=== PATIENT | male | born 1950 | race African-American/Black ===

== ENCOUNTER 2016-04-27 18:56 | Emergency (ER) | payer OTHER ==
[2016-04-27 19:03] VITALS: BP 157/111; PULSE 85; TEMP 98; BMI 26.4
--- NOTE | 2016-04-27 19:53 | PDOC ---
History of Present Illness - General History Source: Patient Exam Limitations: No Limitations - History of Present Illness Initial Comments: 04/27/16 20:12 The patient is a 65 year old male with significant past medical history of hypertension, diabetes, CHF, COPD, liver cirrhosis, and asthma who presents to the ED with few days of increasing left groin pain. Patient states he saw Dr. Cramer on Monday as a follow up from a ultrasound he took back in March. He states the pain is nonradiating. As per Dr. Cramer, the ultrasound revealed a 3cm dilation of artery on the left side and states it appears to be stable. During his follow-up visit with Dr. Cramer on Monday, patient complained of left groin pain, which worsened today and decided to come into the ER. Dr. Cramer suggested an abdomen/pelvis CT with contrast for further evaluation. Patient also has complaints of lower back pain, which he visited his lookback coordinator for and was told it was due to musculoskeletal. The patient denies fever, chills, cough, SOB, chest pain, and palpitations. The patient denies nausea, vomiting, and diarrhea. Allergies: [place]-3 acid Ethyl Esters Social History: No alcohol, tobacco, or drug use reported. Past Surgical History: inguinal hernia repair PCP: Dr. Jeff Herrera Vascular: Dr. Marco Cramer Nephrology: Dr. Rosa Lopez <Joanne Gautam - Last Filed: 04/28/16 01:11> - General History Source: Patient <Richard Nielson - Last Filed: 04/28/16 01:18> - General Chief Complaint: Pain Stated Complaint: PCP SENT Time Seen by Provider: 04/27/16 19:42 Past History <Joanne Gautam - Last Filed: 04/28/16 01:11> - Past Medical History Anemia: No Asthma: Yes Cancer: No Cardiac Disorders: Yes (ATHEROSCLEROSIS OF AORTA) CVA: Yes (NO RESIDUAL) COPD: Yes CHF: Yes Dementia: No Diabetes: Yes GI Disorders: Yes (ACID REFLUX) Disorders: Yes (BPH,ABNORMAL PROSTATIC SECRETION TEST) HTN: Yes Hypercholesterolemia: Yes (HYPERTRIGLYCEMIA) Liver Disease: Yes (CIRRHOSIS.FATTY LIVER) Seizures: No Thyroid Disease: No - Surgical History Abdominal Surgery: Yes (INGUINAL HERNIA) Appendectomy: No Cardiac Surgery: No Cholecystectomy: No Lung Surgery: No Neurologic Surgery: No Orthopedic Surgery: No - Psycho/Social/Smoking Cessation Hx Anxiety: No Suicidal Ideation: No Smoking History: Former smoker Have you smoked in the past 12 months: No If you are a former smoker, when did you quit?: 25 YRS AGO Information on smoking cessation initiated: No Hx Alcohol Use: No Drug/Substance Use Hx: Yes (COCAINE,HEROIN-LAST USE 1966) Substance Use Type: None <Richard Nielson - Last Filed: 04/28/16 01:18> - Past Medical History Allergies/Adverse Reactions: Allergies Allergy/AdvReac Type Severity Reaction Status Date / Time [place]-3 acid Ethyl Esters Allergy Intermediate Rash Verified 04/27/16 19:51 [From Lovaza] Home Medications: Ambulatory Orders Vit D3-Vit K/Berberine/Hops [Ostera Tablet] 1 each PO DAILY 10/02/12 Dapagliflozin Propanediol [Farxiga] 5 mg PO DAILY tablet 06/23/14 Zolpidem Tartrate [Ambien] 2.5 mg PO PRN PRN 01/08/15 Carvedilol Phosphate [Coreg Cr] 20 mg PO DAILY 04/24/15 Sildenafil Citrate [Viagra] 100 mg PO DAILY tablet 05/22/15 Insulin Aspart Prot/Insuln Asp [Novolog Mix 70-30 Flexpen Syrn] 30 unit SQ BID 08/14/15 Losartan/Hydrochlorothiazide [Losartan-Hctz 50-12.5 mg Tab] 1 each PO DAILY Tramadol HCl [Ultram -] 50 mg PO Q8H #30 tablet MDD 4 04/28/16 Review of Systems - Review of Systems Able to Perform ROS?: Yes Comments:: 04/27/16 20:12 CONSTITUTIONAL: Absent: fever, no chills, no fatigue EYES: Absent: visual changes ENT: Absent: ear pain, no sore throat CARDIOVASCULAR: Absent: chest pain, no palpitations RESPIRATORY: Absent: cough, no SOB GI: Absent: no nausea, no vomiting, no constipation, no diarrhea GENITOURINARY: +left groin pain Absent: dysuria, no frequency, no hematuria MUSKULOSKELETAL: +lower back pain Absent: no arthralgia, no myalgia SKIN: Absent: rash NEURO: Absent: headache <BharratJoanne - Last Filed: 04/28/16 01:11> *Physical Exam - Vital Signs Last Vital Signs Temp Pulse Resp BP Pulse Ox 98.0 F 85 20 157/111 98 04/27/16 18:59 04/27/16 18:59 04/27/16 18:59 04/27/16 18:59 04/27/16 18:59 - Physical Exam Comments: 04/27/16 20:12 GENERAL: Well-appearing, well-nourished. No apparent distress. HEENT: Normocephalic, atraumatic. PERRL, EOM intact. CARDIOVASCULAR: Normal S1, S2. Regular rate and rhythm. PULMONARY: Clear to auscultation bilaterally. ABDOMEN: Soft, non-distended. Moderated tenderness in left inguinal region, no defect. EXTREMITIES: Normal ROM in all four extremities. No gross deformities. SKIN: Warm, dry. No rash NEUROLOGICAL: No focal neurological deficits. <Joanne Gautam - Last Filed: 04/28/16 01:11> - Vital Signs Last Vital Signs Temp Pulse Resp BP Pulse Ox 98.0 F 85 20 157/111 98 04/27/16 18:59 04/27/16 18:59 04/27/16 18:59 04/27/16 18:59 04/27/16 18:59 <Richard Nielson - Last Filed: 04/28/16 01:18> ED Treatment Course - LABORATORY CBC & Chemistry Diagram: 04/27/16 20:30 04/27/16 20:30 - RADIOLOGY Radiograph Interpretation: 04/28/16 01:11 EXAM: CT abdomen and pelvis without contrast Reviewed by Imaging pickle solution maker: FINDINGS: Lung bases are clear other than minimal right basilar linear atelectasis. The visualized cardiac chambers are normal size and configuration. There are tiny gallstones without gallbladder inflammation or biliary duct dilation. Normal unenhanced liver, pancreas, spleen, adrenal glands and kidneys. Posterior gastric diverticulum is noted. The abdominal small and large bowel are normal. There is no aortic aneurysm. There is no significant retroperitoneal lymphadenopathy. Small fat containing umbilical hernia is noted. The pelvic small and large bowel are normal. The appendix is normal. The urinary bladder and prostate gland are normal. No pelvic free fluid is identified. There is no significant pelvic lymphadenopathy. IMPRESSION: No aortic aneurysm. Tiny gallstones. Gastric diverticulum. No evidence of acute pathology. <LotusJoanne - Last Filed: 04/28/16 01:11> - LABORATORY CBC & Chemistry Diagram: 04/27/16 20:30 04/27/16 20:30 <Richard Nielson - Last Filed: 04/28/16 01:18> Medical Decision Making - Medical Decision Making 04/27/16 19:[address] Marco Cramer (via answering service) at 19:57 Awaiting call back Patient's case discussed with Dr. Cramer at 20:04 <Joanne Gautam - Last Filed: 04/28/16 01:11> - Medical Decision Making 04/28/16 01:17 Dr. Nielson: The scribe's documentation has been prepared under my direction and personally reviewed by me in its entirery. I confirm that the note above accurately reflects all work, treatment, procedures, and medical decision making performed by me. All studies are negative at this time. Pt to follow up with Dr. Cramer and Dr. Wilman Herrera <Richard Nielson - Last Filed: 04/28/16 01:18> *DC/Admit/Observation/Transfer - Attestations Scribe Attestion: 04/27/16 20:12 Documentation prepared by Joanne Gautam, acting as medical education specialist for Richard Nielson MD <Joanne Gautam - Last Filed: 04/28/16 01:11> - Discharge Dispostion Admit: No <Richard Nielson - Last Filed: 04/28/16 01:18> Diagnosis at time of Disposition: Left groin pain - Discharge Dispostion Disposition: HOME Condition at time of disposition: Stable - Prescriptions Prescriptions: Tramadol HCl [Ultram -] 50 mg PO Q8H #30 tablet MDD 4 - Referrals Referrals: Jeff Herrera MD [Primary Care Provider] - Marco Cramer MD [Staff Physician] - - Patient Instructions Printed Discharge Instructions: DI for Groin Strain
[2016-04-27] MEDS ORDERED: morphine CARPU-JECT 2 MG/1 ML DISP.SYRIN IVPUSH ONE (20:11)
[2016-04-27] MEDS ORDERED: ONDANSETRON 4 MG/2 ML VIAL IVPUSH STA (20:11)
[2016-04-27] MEDS ORDERED: morphine CARPU-JECT 4 MG/1 ML DISP.SYRIN ONE (20:25)
[2016-04-27] MEDS ORDERED: ONDANSETRON 4 MG/2 ML VIAL ONE (20:25)
[2016-04-27 20:43] LABS: BASOPHIL 1.8 % (0-2.0); EOSINOPHIL 3.1 % (0-4.5); MCH 29.8 pg (25.7-33.7); MCHC 33.4 g/dl (32.0-35.9); MEAN CELL VOLUME 89.3 fl (80-96); MEAN PLT VOLUME 9.5 fl (7.5-11.1); NEUTROPHILS 43.2 % (42.8-82.8); PLATELET COUNT 146 K/MM3 (134-434); RDW 13.7 % (11.9-15.9); WHITE BLOOD COUNT 7.7 K/mm3 (4.0-10.0)
[2016-04-27 20:55] LABS: INR 0.99 (0.82-1.09); PROTHROMBIN TIME (PATIENT) 10.9 SEC (9.98-11.88)
[2016-04-27 22:20] LABS: URINE APPEARANCE CLEAR; URINE BILIRUBIN NEGATIVE (NEGATIVE); URINE COLOR STRAW; URINE GLUCOSE (UA) 3+ (NEGATIVE); URINE KETONE NEGATIVE (NEGATIVE); URINE LEUK ESTERASE NEGATIVE (NEGATIVE); URINE NITRITE NEGATIVE (NEGATIVE); URINE UROBILINOGEN NEGATIVE E.U./dl (0.2-1.0)
[2016-04-27 22:25] LABS: URINE BLOOD 1+ (NEGATIVE); URINE PROTEIN 1+ (NEGATIVE)
[2016-04-27 22:42] LABS: URINE RBC 2 /hpf (0-3); URINE WBC <1 /hpf (3-5)
[2016-04-27 23:13] LABS: ALBUMIN 4.1 g/dl (3.4-5.0); CALCIUM 8.9 mg/dL (8.5-10.1); MAGNESIUM 2.5 mg/dL (1.8-2.4)
[2016-04-27 23:20] LABS: BILIRUBIN,TOTAL 0.4 mg/dL (0.2-1.0); CREATININE 1.5 mg/dL (0.7-1.3); TOT PROT 8.3 g/dl (6.4-8.2)
[2016-04-28] MEDS ORDERED: traMADol HCL 50 MG TABLET PO ONE (01:14)
[2016-04-28] MEDS ORDERED: traMADol HCL 50 MG TABLET ONE (01:37)
== END 2016-04-28 01:42 | disposition home or self-care (01) ==
LOC: JER 18:56
PROC: 3E033NZ Introduction of Analgesics, Hypnotics, Sedatives into Peripheral Vein, Percutaneous Approach (ICD-10-PCS; principal; 2016-04-27)
PROC: 3E033GC Introduction of Other Therapeutic Substance into Peripheral Vein, Percutaneous Approach (ICD-10-PCS; 2016-04-27)
DX: R10.32 Left lower quadrant pain (principal); I10 Essential (primary) hypertension; E11.9 Type 2 diabetes mellitus without complications; I50.9 Heart failure, unspecified; J44.9 Chronic obstructive pulmonary disease, unspecified; K74.60 Unspecified cirrhosis of liver; J45.909 Unspecified asthma, uncomplicated; Z86.73 Personal history of transient ischemic attack (TIA), and cerebral infarction without residual deficits; K21.9 Gastro-esophageal reflux disease without esophagitis; K76.0 Fatty (change of) liver, not elsewhere classified; Z87.891 Personal history of nicotine dependence; I70.0 Atherosclerosis of aorta
CPT/HCPCS: 36415; 74176-TC; 80053; 81003; 81015; 83690; 83735; 83880; 85025; 85610; 86850; 86900; 86901; 99283-25

== ENCOUNTER 2016-11-08 15:27 | Emergency (ER) | payer OTHER ==
--- NOTE | 2016-11-08 16:30 | PDOC ---
History of Present Illness - General Stated Complaint: CHEST PAIN Time Seen by Provider: 11/08/16 16:27 Past History - Past Medical History Allergies/Adverse Reactions: Allergies Allergy/AdvReac Type Severity Reaction Status Date / Time [place]-3 acid Ethyl Esters Allergy Intermediate Rash Verified 04/27/16 19:51 [From Lovaza] Home Medications: Ambulatory Orders Vit D3-Vit K/Berberine/Hops [Ostera Tablet] 1 each PO DAILY 10/02/12 Dapagliflozin Propanediol [Farxiga] 5 mg PO DAILY tablet 06/23/14 Zolpidem Tartrate [Ambien] 2.5 mg PO PRN PRN 01/08/15 Carvedilol Phosphate [Coreg Cr] 20 mg PO DAILY 04/24/15 Sildenafil Citrate [Viagra] 100 mg PO DAILY tablet 05/22/15 Insulin Aspart Prot/Insuln Asp [Novolog Mix 70-30 Flexpen Syrn] 30 unit SQ BID 08/14/15 Losartan/Hydrochlorothiazide [Losartan-Hctz 50-12.5 mg Tab] 1 each PO DAILY Tramadol HCl [Ultram -] 50 mg PO Q8H #30 tablet MDD 4 04/28/16 Anemia: No Asthma: Yes Cancer: No Cardiac Disorders: Yes (ATHEROSCLEROSIS OF AORTA) CVA: Yes (NO RESIDUAL) COPD: Yes CHF: Yes Dementia: No Diabetes: Yes GI Disorders: Yes (ACID REFLUX, hep C) Disorders: Yes (BPH,ABNORMAL PROSTATIC SECRETION TEST) HTN: Yes Hypercholesterolemia: Yes Liver Disease: Yes (CIRRHOSIS.FATTY LIVER) Seizures: No Thyroid Disease: No - Surgical History Abdominal Surgery: Yes (INGUINAL HERNIA) Appendectomy: No Cardiac Surgery: No Cholecystectomy: No Lung Surgery: No Neurologic Surgery: No Orthopedic Surgery: No - Psycho/Social/Smoking Cessation Hx Anxiety: No Suicidal Ideation: No Smoking History: Former smoker Have you smoked in the past 12 months: No If you are a former smoker, when did you quit?: 25 YRS AGO Hx Alcohol Use: No Drug/Substance Use Hx: Yes (COCAINE,HEROIN-LAST USE 1966) Substance Use Type: None
[2016-11-08 16:42] VITALS: TEMP 98.7; BMI 26.2
[2016-11-08 18:11] LABS: URINE APPEARANCE CLEAR; URINE BILIRUBIN NEGATIVE (NEGATIVE); URINE BLOOD NEGATIVE (NEGATIVE); URINE COLOR STRAW; URINE GLUCOSE (UA) 3+ (NEGATIVE); URINE KETONE NEGATIVE (NEGATIVE); URINE LEUK ESTERASE NEGATIVE (NEGATIVE); URINE NITRITE NEGATIVE (NEGATIVE); URINE PROTEIN NEGATIVE (NEGATIVE); URINE UROBILINOGEN NEGATIVE mg/dL (0.2-1.0)
[2016-11-08 18:12] LABS: BASOPHIL 0.2 % (0-2.0); EOSINOPHIL 3.1 % (0-4.5); MCH 30.3 pg (25.7-33.7); MCHC 33.4 g/dl (32.0-35.9); MEAN CELL VOLUME 90.6 fl (80-96); MEAN PLT VOLUME 9.5 fl (7.5-11.1); NEUTROPHILS 49.5 % (42.8-82.8); PLATELET COUNT 154 K/MM3 (134-434); RDW 13.4 % (11.9-15.9); WHITE BLOOD COUNT 6.2 K/mm3 (4.0-10.0)
--- NOTE | 2016-11-08 18:22 | PDOC ---
Attending Attestation - Resident Resident Name: AntoniaJaden - ED Attending Attestation I have performed the following: I have examined & evaluated the patient, The case was reviewed & discussed with the resident, I agree w/resident's findings & plan, Exceptions are as noted - HPI HPI: 11/08/16 18:19 Agree with the resident's HPI as documented in the electronic medical record. - Physicial Exam PE: 11/08/16 18:20 Agree with the resident's physical examination as documented in the electronic medical record. - Medical Decision Making 11/08/16 18:20 66-year-old male with history of hypertension, AAA, diabetes who presents to the emergency department with complaints of five-day history of intermittent chest pain. Differential diagnosis includes but is not limited to: ACS, pneumothorax, pneumonia, GERD, electrolyte abnormality, toxic/metabolic derangement. Plan: 1. EKGshows ST segment elevations in V1 and V2 that are unchanged from prior EKG obtained from [facility] performed in October 2016 2. Chest x-ray 3. Labs 4. Collateral information from band tacker at [place] 5. Given his cardiac risk factors, EKG findings will likely admit to observation for serial cardiac markers and stress test 6. Observe and reevaluate
[2016-11-08 18:33] LABS: ALBUMIN 3.5 g/dl (3.4-5.0); ANION GAP 9 (8-16); BILIRUBIN,TOTAL 0.4 mg/dL (0.2-1.0); CALCIUM 9.2 mg/dL (8.5-10.1); CO2 31 mmol/L (21-32); CPK 261 IU/L (39-308); CREATININE 1.6 mg/dL (0.7-1.3); SGOT/AST 15 U/L (15-37); SGPT/ALT 27 U/L (12-78); TOT PROT 7.5 g/dl (6.4-8.2)
[2016-11-08 18:35] LABS: ALK PHOS 112 U/L (45-117); TROPONIN I < 0.02 ng/ml (0.00-0.05)
[2016-11-08 18:55] LABS: GLUCOSE,RANDOM 421 mg/dL (74-106)
[2016-11-08 19:31] VITALS: PULSE 62
[2016-11-08] MEDS ORDERED: INSULIN REGULAR HUMAN 100 UNITS/ML *VIAL SQ ONE (20:14)
[2016-11-08] MEDS ORDERED: INSULIN REGULAR HUMAN 100 UNITS/ML *VIAL ONE (20:27)
--- NOTE | 2016-11-08 21:03 | PDOC ---
*Physical Exam - Vital Signs Last Vital Signs Temp Pulse Resp BP Pulse Ox 98.7 F 62 19 131/92 100 11/08/16 15:30 11/08/16 19:30 11/08/16 19:30 11/08/16 19:30 11/08/16 19:30 - Physical Exam General Appearance: Yes: Nourished ED Treatment Course - LABORATORY CBC & Chemistry Diagram: 11/08/16 17:30 11/08/16 17:30 - ADDITIONAL ORDERS Additional order review: Laboratory Results 11/08/16 11/08/16 11/08/16 18:20 17:30 17:30 Sodium 134 L Potassium 4.4 Chloride 94 L Carbon Dioxide 31 Anion Gap 9 BUN 23 H D Creatinine 1.6 H Creat Clearance w eGFR 43.33 Random Glucose 421 H* D Calcium 9.2 Total Bilirubin 0.4 AST 15 D ALT 27 Alkaline Phosphatase 112 Creatine Kinase 261 Creatine Kinase Index 0.9 CK-MB (CK-2) 2.405 Troponin I < 0.02 B-Natriuretic Peptide 116.05 Total Protein 7.5 Albumin 3.5 Urine Color Straw Urine Appearance Clear Urine pH 6.0 Urine Protein Negative Urine Glucose (UA) 3+ H Urine Ketones Negative Urine Blood Negative Urine Nitrite Negative Urine Bilirubin Negative Urine Urobilinogen Negative Ur Leukocyte Esterase Negative 11/08/16 17:30 RBC 4.42 MCV 90.6 MCHC 33.4 RDW 13.4 MPV 9.5 Neutrophils % 49.5 Lymphocytes % 37.5 Monocytes % 9.7 Eosinophils % 3.1 Basophils % 0.2 - Medications Given in the ED: ED Medications Discontinued Medications Generic Name Dose Route Start Last Admin Trade Name Gila PRN Reason Stop Dose Admin Insulin Human Regular 10 units 11/08/16 20:14 11/08/16 20:31 Novolin R Vial *For Ivpush Or Iv Drip Only* SQ 11/08/16 20:15 10 units ONCE ONE Administration *DC/Admit/Observation/Transfer Diagnosis at time of Disposition: Chest pain Qualifiers: Chest pain type: unspecified Qualified Code(s): R07.9 - Chest pain, unspecified - Discharge Dispostion Disposition: HOME Condition at time of disposition: Stable Admit: No - Patient Instructions Printed Discharge Instructions: DI for Chest Pain
[2016-11-08 21:59] LABS: CPK 240 IU/L (39-308); TROPONIN I < 0.02 ng/ml (0.00-0.05)
[2016-11-08] MEDS ORDERED: SODIUM CHLORIDE 1,000 ML IV STA (22:18)
[2016-11-08 23:41] VITALS: BP 161/97
--- NOTE | 2016-11-09 14:42 | EKG ---
Test Reason : Blood Pressure : / mmHG Vent. 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
--- NOTE | 2016-11-09 14:45 | EKG ---
Test Reason : Blood Pressure : / mmHG Vent. 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
== END 2016-11-08 23:55 | disposition home or self-care (01) ==
LOC: JER 15:27
PROC: 3E013VG Introduction of Insulin into Subcutaneous Tissue, Percutaneous Approach (ICD-10-PCS; principal; 2016-11-08)
PROC: 3E0337Z Introduction of Electrolytic and Water Balance Substance into Peripheral Vein, Percutaneous Approach (ICD-10-PCS; 2016-11-08)
DX: R07.9 Chest pain, unspecified (principal); I10 Essential (primary) hypertension; I50.9 Heart failure, unspecified; I70.0 Atherosclerosis of aorta; E11.9 Type 2 diabetes mellitus without complications; E78.00 Pure hypercholesterolemia, unspecified; J45.909 Unspecified asthma, uncomplicated; K21.9 Gastro-esophageal reflux disease without esophagitis; B18.2 Chronic viral hepatitis C; N40.0 Benign prostatic hyperplasia without lower urinary tract symptoms; Z86.73 Personal history of transient ischemic attack (TIA), and cerebral infarction without residual deficits; Z91.013 Allergy to seafood; Z87.891 Personal history of nicotine dependence
CPT/HCPCS: 36415; 71020-TC; 80053; 81003; 82553; 83880; 84484; 85025; 93005; 93010; 96360; 96372; 99284-25

== ENCOUNTER 2020-07-12 15:25 | Inpatient (IN) | payer OTHER ==
[2020-07-12 17:51] LABS: BASO % 0.7 % (0-2.0); EOS % 4.6 % (0-4.5); LYMPH % 30.9 % (8-40); MCH 30.1 pg (25.7-33.7); MCHC 33.2 g/dl (32.0-35.9); MEAN CELL VOLUME 90.5 fl (80-96); MEAN PLT VOLUME 9.9 fl (7.5-11.1); MONO % 8.1 % (3.8-10.2); NEUT % 55.7 % (42.8-82.8); PLATELET COUNT 157 K/MM3 (134-434); RBC 3.65 M/mm3 (4.00-5.60); RDW 13.8 % (11.9-15.9); WHITE BLOOD COUNT 5.8 K/mm3 (4.0-10.0)
[2020-07-12 18:11] LABS: CALCIUM 8.6 mg/dL (8.5-10.1)
[2020-07-12 18:12] LABS: BLOOD UREA NITROGEN 20.4 mg/dL (7-18)
[2020-07-12 18:16] LABS: CREATININE 1.7 mg/dL (0.55-1.3)
[2020-07-12 18:17] LABS: BILIRUBIN,TOTAL 0.3 mg/dL (0.2-1); TOT PROT 6.8 g/dl (6.4-8.2)
[2020-07-12] MEDS ORDERED: FUROSEMIDE 40 MG/4 ML INJECTABLE VIAL IVPUSH ONE (19:23)
[2020-07-12] MEDS ORDERED: FUROSEMIDE 40 MG/4 ML INJECTABLE VIAL ONE (19:46)
[2020-07-13 08:17] LABS: BASO % 1.1 % (0-2.0); EOS % 3.5 % (0-4.5); HEMATOCRIT 33.5 % (35.4-49); HEMOGLOBIN 11.4 GM/dL (11.7-16.9); LYMPH % 34.7 % (8-40); MCH 30.5 pg (25.7-33.7); MEAN CELL VOLUME 89.5 fl (80-96); MONO % 9.1 % (3.8-10.2); NEUT % 51.6 % (42.8-82.8); PLATELET COUNT 160 K/MM3 (134-434); RBC 3.74 M/mm3 (4.00-5.60); RDW 13.8 % (11.9-15.9); WHITE BLOOD COUNT 6.2 K/mm3 (4.0-10.0)
[2020-07-13 08:47] LABS: CALCIUM 8.6 mg/dL (8.5-10.1)
[2020-07-13 08:48] LABS: CREATININE 1.7 mg/dL (0.55-1.3)
[2020-07-13 08:49] LABS: BILIRUBIN,TOTAL 0.4 mg/dL (0.2-1); TOT PROT 6.6 g/dl (6.4-8.2)
[2020-07-13 08:50] LABS: PHOSPHOROUS 3.2 mg/dL (2.5-4.9)
[2020-07-13] MEDS ORDERED: FUROSEMIDE 40 MG/4 ML INJECTABLE VIAL IVPUSH SCH (10:00)
[2020-07-13] MEDS ORDERED: HYDROCHLOROTHIAZIDE 25 MG TABLET (FP) ONE (11:05)
[2020-07-13] MEDS ORDERED: CARVEDILOL 12.5 MG TABLET (FP) ONE (11:05)
[2020-07-13] MEDS ORDERED: SPIRONOLACTONE 25 MG TABLET ONE (11:06)
[2020-07-13] MEDS ORDERED: buPROPion HCL 100 MG TABLET ONE (11:06)
[2020-07-13] MEDS ORDERED: LOSARTAN POTASSIUM 50 MG TABLET ONE (11:06)
[2020-07-13] MEDS: SPIRONOLACTONE 25 MG TABLET PO SCH (11:12)
[2020-07-13] MEDS: CARVEDILOL 25 MG TABLET (FP) PO SCH ×2 (11:12→22:11)
[2020-07-13] MEDS: FUROSEMIDE 40 MG/4 ML INJECTABLE VIAL IVPUSH SCH ×2 (11:12→18:42)
[2020-07-13] MEDS: HYDROCHLOROTHIAZIDE 25 MG TABLET (FP) PO SCH (11:48)
[2020-07-13] MEDS: LOSARTAN POTASSIUM 50 MG TABLET PO SCH (11:48)
[2020-07-13] MEDS: INSULIN SLIDING SCALE (NOVOLOG) 1 VIAL SQ SCH ×3 (11:48→22:06)
[2020-07-13 13:11] LABS: INR 1.07 (0.83-1.09); PROTHROMBIN TIME (PATIENT) 13.1 SEC (9.7-13.0)
[2020-07-13] MEDS ORDERED: FUROSEMIDE 40 MG/4 ML INJECTABLE VIAL ONE (18:43)
[2020-07-13] MEDS: INSULIN (LEVEMIR) 100 UNITS/ML UNITS SQ SCH (22:06)
[2020-07-13] MEDS: ZOLPIDEM TARTRATE 5 MG TABLET PO PRN (22:11)
[2020-07-13] MEDS: HEPARIN NA (PORCINE) 5,000 UNITS/ML 1ML VIAL SQ SCH (22:11)
[2020-07-14] MEDS: FUROSEMIDE 40 MG/4 ML INJECTABLE VIAL IVPUSH SCH ×2 (06:48→13:15)
[2020-07-14] MEDS: INSULIN SLIDING SCALE (NOVOLOG) 1 VIAL SQ SCH ×4 (06:49→21:09)
[2020-07-14] MEDS ORDERED: DEXTROAMPHETAMINE SULFATE 20 MG PO SCH (07:00)
[2020-07-14 09:15] LABS: BASO % 0.7 % (0-2.0); EOS % 3.9 % (0-4.5); HEMOGLOBIN 12.2 GM/dL (11.7-16.9); LYMPH % 41.6 % (8-40); MCH 30.5 pg (25.7-33.7); MCHC 33.8 g/dl (32.0-35.9); MEAN CELL VOLUME 90.2 fl (80-96); MEAN PLT VOLUME 9.9 fl (7.5-11.1); MONO % 8.5 % (3.8-10.2); NEUT % 45.3 % (42.8-82.8); PLATELET COUNT 171 K/MM3 (134-434); RBC 3.99 M/mm3 (4.00-5.60); RDW 13.9 % (11.9-15.9); WHITE BLOOD COUNT 6.4 K/mm3 (4.0-10.0)
[2020-07-14] MEDS: CARVEDILOL 25 MG TABLET (FP) PO SCH ×2 (09:25→21:10)
[2020-07-14] MEDS: HYDROCHLOROTHIAZIDE 25 MG TABLET (FP) PO SCH (09:26)
[2020-07-14] MEDS: LOSARTAN POTASSIUM 50 MG TABLET PO SCH (09:26)
[2020-07-14] MEDS: HEPARIN NA (PORCINE) 5,000 UNITS/ML 1ML VIAL SQ SCH ×2 (09:27→21:10)
[2020-07-14] MEDS ORDERED: SPIRONOLACTONE 25 MG TABLET PO SCH (10:00)
[2020-07-14 10:09] LABS: ALBUMIN 3.2 g/dl (3.4-5.0); BLOOD UREA NITROGEN 28.2 mg/dL (7-18); CALCIUM 9.3 mg/dL (8.5-10.1)
[2020-07-14 10:12] LABS: CREATININE 2.1 mg/dL (0.55-1.3)
[2020-07-14 10:13] LABS: BILIRUBIN,TOTAL 0.5 mg/dL (0.2-1)
[2020-07-14] MEDS: SPIRONOLACTONE 25 MG TABLET PO SCH (11:30)
[2020-07-14] MEDS: INSULIN (LEVEMIR) 100 UNITS/ML UNITS SQ SCH (21:43)
[2020-07-14] MEDS: ZOLPIDEM TARTRATE 5 MG TABLET PO PRN (23:47)
[2020-07-15] MEDS: FUROSEMIDE 40 MG/4 ML INJECTABLE VIAL IVPUSH SCH ×2 (06:15→13:47)
[2020-07-15] MEDS: INSULIN SLIDING SCALE (NOVOLOG) 1 VIAL SQ SCH ×4 (06:15→21:21)
[2020-07-15 08:53] LABS: MAGNESIUM 2.1 mg/dL (1.8-2.4)
[2020-07-15 08:56] LABS: PHOSPHOROUS 3.9 mg/dL (2.5-4.9)
[2020-07-15] MEDS: CARVEDILOL 25 MG TABLET (FP) PO SCH ×2 (09:15→21:22)
[2020-07-15] MEDS: LOSARTAN POTASSIUM 50 MG TABLET PO SCH (09:15)
[2020-07-15] MEDS: HEPARIN NA (PORCINE) 5,000 UNITS/ML 1ML VIAL SQ SCH ×2 (09:15→21:22)
[2020-07-15] MEDS: SPIRONOLACTONE 25 MG TABLET PO SCH (09:16)
[2020-07-15] MEDS: HYDROCHLOROTHIAZIDE 25 MG TABLET (FP) PO SCH (09:16)
[2020-07-15 10:39] VITALS: BMI 27.8
[2020-07-15] MEDS: amLODIPine BESYLATE 5 MG TABLET (FP) PO SCH (11:39)
[2020-07-15] MEDS: INSULIN (LEVEMIR) 100 UNITS/ML UNITS SQ SCH (21:22)
[2020-07-15] MEDS: ZOLPIDEM TARTRATE 5 MG TABLET PO PRN (23:34)
[2020-07-16] MEDS: INSULIN SLIDING SCALE (NOVOLOG) 1 VIAL SQ SCH ×4 (06:06→21:21)
[2020-07-16] MEDS: FUROSEMIDE 40 MG/4 ML INJECTABLE VIAL IVPUSH SCH ×2 (06:07→13:51)
[2020-07-16] MEDS: LOSARTAN POTASSIUM 50 MG TABLET PO SCH (09:02)
[2020-07-16] MEDS: amLODIPine BESYLATE 5 MG TABLET (FP) PO SCH (09:02)
[2020-07-16] MEDS: CARVEDILOL 25 MG TABLET (FP) PO SCH ×2 (09:02→21:16)
[2020-07-16] MEDS: HEPARIN NA (PORCINE) 5,000 UNITS/ML 1ML VIAL SQ SCH ×2 (09:02→21:16)
[2020-07-16] MEDS: SPIRONOLACTONE 25 MG TABLET PO SCH (09:03)
[2020-07-16] MEDS: HYDROCHLOROTHIAZIDE 25 MG TABLET (FP) PO SCH (09:03)
[2020-07-16 10:06] LABS: CALCIUM 8.9 mg/dL (8.5-10.1)
[2020-07-16 10:07] LABS: BLOOD UREA NITROGEN 41.9 mg/dL (7-18)
[2020-07-16 10:10] LABS: CREATININE 2.3 mg/dL (0.55-1.3)
[2020-07-16] MEDS ORDERED: hydrALAZINE HCL 25 MG TABLET (FP) PO SCH ×2 (12:30→22:00)
[2020-07-16] MEDS ORDERED: PT OWN MED DRAWER 7, Y5N ONE (15:52)
[2020-07-16] MEDS ORDERED: INSULIN (NOVOLOG) ASPART 100 UNITS/ML 10ML VIAL ONE (20:52)
[2020-07-16] MEDS: INSULIN (LEVEMIR) 100 UNITS/ML UNITS SQ SCH (21:22)
[2020-07-16] MEDS ORDERED: INSULIN (LEVEMIR) 100 UNITS/ML UNITS SQ SCH (22:00)
[2020-07-16] MEDS: ZOLPIDEM TARTRATE 5 MG TABLET PO PRN (23:15)
[2020-07-17] MEDS: INSULIN SLIDING SCALE (NOVOLOG) 1 VIAL SQ SCH ×4 (06:26→21:47)
[2020-07-17] MEDS: INSULIN (LEVEMIR) 100 UNITS/ML UNITS SQ SCH ×2 (06:29→21:46)
[2020-07-17] MEDS: FUROSEMIDE 40 MG/4 ML INJECTABLE VIAL IVPUSH SCH ×2 (06:30→13:56)
[2020-07-17] MEDS ORDERED: INSULIN (NOVOLOG) ASPART 100 UNITS/ML 10ML VIAL ONE ×2 (07:57→12:10)
[2020-07-17] MEDS: amLODIPine BESYLATE 5 MG TABLET (FP) PO SCH (09:49)
[2020-07-17] MEDS: SPIRONOLACTONE 25 MG TABLET PO SCH (09:49)
[2020-07-17] MEDS: LOSARTAN POTASSIUM 50 MG TABLET PO SCH (09:49)
[2020-07-17] MEDS: CARVEDILOL 25 MG TABLET (FP) PO SCH ×2 (09:49→21:45)
[2020-07-17] MEDS: HEPARIN NA (PORCINE) 5,000 UNITS/ML 1ML VIAL SQ SCH ×2 (09:49→21:45)
[2020-07-18] MEDS: ZOLPIDEM TARTRATE 5 MG TABLET PO PRN (00:22)
[2020-07-18] MEDS: FUROSEMIDE 40 MG/4 ML INJECTABLE VIAL IVPUSH SCH (06:23)
[2020-07-18] MEDS: INSULIN SLIDING SCALE (NOVOLOG) 1 VIAL SQ SCH ×2 (06:23→12:00)
[2020-07-18] MEDS: INSULIN (LEVEMIR) 100 UNITS/ML UNITS SQ SCH (06:23)
[2020-07-18 07:29] VITALS: TEMP 98.4
[2020-07-18 10:12] LABS: EOS % 4.2 % (0-4.5); HEMATOCRIT 36.9 % (35.4-49); HEMOGLOBIN 12.3 GM/dL (11.7-16.9); LYMPH % 40.6 % (8-40); MCH 30.4 pg (25.7-33.7); MCHC 33.3 g/dl (32.0-35.9); MEAN CELL VOLUME 91.3 fl (80-96); MEAN PLT VOLUME 10.7 fl (7.5-11.1); MONO % 10.6 % (3.8-10.2); NEUT % 43.6 % (42.8-82.8); PLATELET COUNT 186 K/MM3 (134-434); RBC 4.04 M/mm3 (4.00-5.60); RDW 14.1 % (11.9-15.9); WHITE BLOOD COUNT 6.6 K/mm3 (4.0-10.0)
[2020-07-18] MEDS: CARVEDILOL 25 MG TABLET (FP) PO SCH (10:23)
[2020-07-18] MEDS: amLODIPine BESYLATE 5 MG TABLET (FP) PO SCH (10:23)
[2020-07-18] MEDS: HEPARIN NA (PORCINE) 5,000 UNITS/ML 1ML VIAL SQ SCH (10:23)
[2020-07-18] MEDS: SPIRONOLACTONE 25 MG TABLET PO SCH (10:23)
[2020-07-18] MEDS: LOSARTAN POTASSIUM 50 MG TABLET PO SCH (10:23)
[2020-07-18 10:34] LABS: BLOOD UREA NITROGEN 51.4 mg/dL (7-18); CALCIUM 9.1 mg/dL (8.5-10.1)
[2020-07-18 10:38] LABS: CREATININE 2.5 mg/dL (0.55-1.3)
[2020-07-18 11:09] VITALS: BP 150/88; PULSE 74
[2020-07-18] MEDS ORDERED: INSULIN (NOVOLOG) ASPART 100 UNITS/ML 10ML VIAL ONE (12:06)
== END 2020-07-18 13:00 | disposition home or self-care (01) | DRG 291 ==
LOC: JER 15:25 → JERBED 20:47 → J6WEST-2 07-13 21:37 → J8W 07-16 14:46
PROVIDERS: ADMIT Hospitalist; ATTEND Internal Medicine
DX: I13.0 Hypertensive heart and chronic kidney disease with heart failure and stage 1 through stage 4 chronic kidney disease, or unspecified chronic kidney disease (principal); I50.33 Acute on chronic diastolic (congestive) heart failure; K74.60 Unspecified cirrhosis of liver; I71.4 Abdominal aortic aneurysm, without rupture; J44.9 Chronic obstructive pulmonary disease, unspecified; E11.22 Type 2 diabetes mellitus with diabetic chronic kidney disease; Z20.822 Contact with and (suspected) exposure to COVID-19; Z79.4 Long term (current) use of insulin; N18.30 Chronic kidney disease, stage 3 unspecified; I44.0 Atrioventricular block, first degree; K76.0 Fatty (change of) liver, not elsewhere classified
CPT/HCPCS: 36415; 71045-TC-FY; 76775-TC; 80048; 80053; 80061; 82550; 82553; 82962; 83036; 83721; 83735; 83880; 84100; 84443; 84484; 85025; 85610; 93005; 93010; 93306-TC; 99285-25; C9803; J1644; U0003; U0005

== ENCOUNTER 2020-10-03 18:06 | Emergency (ER) | payer OTHER ==
[2020-10-03 18:12] VITALS: BP 162/82; PULSE 100; TEMP 98.5; BMI 26.9
[2020-10-03 20:29] LABS: BASO % 0.6 % (0-2.0); EOS % 3.5 % (0-4.5); HEMATOCRIT 34.1 % (35.4-49); HEMOGLOBIN 11.8 GM/dL (11.7-16.9); LYMPH % 20.3 % (8-40); MCH 30.5 pg (25.7-33.7); MCHC 34.7 g/dl (32.0-35.9); MEAN PLT VOLUME 8.5 fl (7.5-11.1); MONO % 8.9 % (3.8-10.2); NEUT % 66.7 % (42.8-82.8); PLATELET COUNT 190 10^3/uL (134-434); RBC 3.87 M/mm3 (4.00-5.60); RDW 13.4 % (11.9-15.9); WHITE BLOOD COUNT 6.6 K/mm3 (4.0-10.0)
[2020-10-03] MEDS ORDERED: LIDOCAINE 5% TOPICAL PATCH TP ONE (20:31)
[2020-10-03 20:45] LABS: CHLORIDE 103 mmol/L (98-107); SODIUM 136 mmol/L (136-145)
[2020-10-03 20:47] LABS: CALCIUM 8.8 mg/dL (8.5-10.1)
[2020-10-03 20:48] LABS: ALBUMIN 3.4 g/dl (3.4-5.0); ANION GAP 7 MMOL/L (8-16); CO2 27 mmol/L (21-32); GLUCOSE,RANDOM 261 mg/dL (74-106)
[2020-10-03] MEDS ORDERED: LIDOCAINE 5% TOPICAL PATCH ONE (20:50)
[2020-10-03 20:51] LABS: CREATININE 2.2 mg/dL (0.55-1.3); SGOT/AST 33 U/L (15-37); SGPT/ALT 33 U/L (13-61)
[2020-10-03 20:52] LABS: BILIRUBIN,TOTAL 0.3 mg/dL (0.2-1)
[2020-10-03 20:53] LABS: TOT PROT 7.8 g/dl (6.4-8.2)
[2020-10-03 20:54] LABS: ALK PHOS 140 U/L (45-117)
[2020-10-03 20:56] LABS: N-TERMINAL BNP 309.3 pg/ml (5-125)
[2020-10-03 21:07] LABS: PH,URINE 6.5 (5.0-8.0); URINE APPEARANCE Clear; URINE BILIRUBIN Negative (NEGATIVE); URINE COLOR Yellow; URINE GLUCOSE (UA) 1+ (NEGATIVE); URINE KETONE Negative (NEGATIVE); URINE LEUK ESTERASE Negative (NEGATIVE); URINE NITRITE Negative (NEGATIVE); URINE PROTEIN Negative (NEGATIVE); URINE UROBILINOGEN 0.2 mg/dL (0.2-1.0)
[2020-10-03] MEDS ORDERED: FUROSEMIDE 40 MG/4 ML INJECTABLE VIAL IVPUSH ONE (21:23)
[2020-10-03 21:58] LABS: URINE RBC 3.4 /uL (0-23.9)
[2020-10-03 21:59] LABS: EPI CELLS 0.7 /uL (0-25.1); URINE WBC 0.2 /uL (0-25.8)
[2020-10-03] MEDS ORDERED: LIDOCAINE PATCH REMOVAL MC SCH (22:00)
== END 2020-10-03 22:53 | disposition home or self-care (01) ==
LOC: JER 18:06
PROC: 3E033GC Introduction of Other Therapeutic Substance into Peripheral Vein, Percutaneous Approach (ICD-10-PCS; principal; 2020-10-03)
DX: M54.41 Lumbago with sciatica, right side (principal); M79.604 Pain in right leg
CPT/HCPCS: 36415; 71045-TC-FY; 73610-TC-RT-FY; 80053; 81003; 82550; 82553; 83880; 84484; 85025; 93005; 93010; 99285-25

== ENCOUNTER 2022-02-04 19:37 | Inpatient (IN) | payer OTHER ==
[2022-02-04 20:02] VITALS: BMI 26.9
[2022-02-04] MEDS ORDERED: CARVEDILOL 25 MG TABLET (FP) PO ONE (20:42)
[2022-02-04] MEDS ORDERED: hydrALAZINE HCL 20 MG/ML VIAL IVPUSH ONE (20:43)
[2022-02-04] MEDS ORDERED: CARVEDILOL 25 MG TABLET (FP) ONE (20:51)
[2022-02-04] MEDS ORDERED: hydrALAZINE HCL 20 MG/ML VIAL ONE (20:51)
[2022-02-04 21:12] LABS: BASO % 0.5 % (0-2.0); EOS % 0.7 % (0-4.5); HEMATOCRIT 32.8 % (35.4-49); LYMPH % 7.8 % (8-40); MCH 29.5 pg (25.7-33.7); MCHC 33.5 g/dl (32.0-35.9); MEAN CELL VOLUME 87.9 fl (80-96); MEAN PLT VOLUME 9.3 fl (7.5-11.1); MONO % 5.6 % (3.8-10.2); NEUT % 85.4 % (42.8-82.8); PLATELET COUNT 151 10^3/uL (134-434); RBC 3.73 M/mm3 (4.00-5.60); RDW 13.6 % (11.9-15.9); WHITE BLOOD COUNT 10.9 K/mm3 (4.0-10.0)
[2022-02-04] MEDS ORDERED: FUROSEMIDE 40 MG/4 ML INJECTABLE VIAL IVPUSH ONE ×2 (21:24→22:27)
[2022-02-04 21:37] LABS: ALBUMIN 2.6 g/dl (3.4-5.0); CALCIUM 8.4 mg/dL (8.5-10.1); MAGNESIUM 1.7 mg/dL (1.8-2.4)
[2022-02-04 21:40] LABS: CREATININE 2.2 mg/dL (0.55-1.3)
[2022-02-04] MEDS ORDERED: FUROSEMIDE 40 MG/4 ML INJECTABLE VIAL ONE ×2 (21:40→22:35)
[2022-02-04 21:42] LABS: TOT PROT 6.4 g/dl (6.4-8.2)
[2022-02-04 21:43] LABS: BILIRUBIN,TOTAL 0.5 mg/dL (0.2-1)
[2022-02-04 21:45] LABS: N-TERMINAL BNP 3303.6 pg/ml (5-125)
[2022-02-05 07:25] LABS: BASO % 0.5 % (0-2.0); EOS % 1.9 % (0-4.5); HEMATOCRIT 32.4 % (35.4-49); HEMOGLOBIN 10.7 GM/dL (11.7-16.9); LYMPH % 16.8 % (8-40); MCH 28.8 pg (25.7-33.7); MCHC 33.1 g/dl (32.0-35.9); NEUT % 72.8 % (42.8-82.8); PLATELET COUNT 154 10^3/uL (134-434); RBC 3.72 M/mm3 (4.00-5.60); RDW 13.9 % (11.9-15.9); WHITE BLOOD COUNT 9.5 K/mm3 (4.0-10.0)
[2022-02-05 07:47] LABS: CALCIUM 7.9 mg/dL (8.5-10.1)
[2022-02-05 07:48] LABS: ALBUMIN 2.4 g/dl (3.4-5.0); BLOOD UREA NITROGEN 18.6 mg/dL (7-18)
[2022-02-05 07:52] LABS: CREATININE 2.1 mg/dL (0.55-1.3)
[2022-02-05 07:53] LABS: BILIRUBIN,TOTAL 0.6 mg/dL (0.2-1)
[2022-02-05] MEDS: INSULIN SLIDING SCALE (NOVOLOG) 1 VIAL SQ SCH ×3 (07:53→16:32)
[2022-02-05] MEDS ORDERED: CARVEDILOL 25 MG TABLET (FP) ONE ×2 (10:27→21:15)
[2022-02-05] MEDS ORDERED: SPIRONOLACTONE 25 MG TABLET ONE (10:27)
[2022-02-05] MEDS ORDERED: amLODIPine BESYLATE 10 MG TABLET (FP) ONE (10:27)
[2022-02-05] MEDS: INSULIN (LEVEMIR) 100 UNITS/ML UNITS SQ SCH ×2 (10:34→21:17)
[2022-02-05] MEDS: amLODIPine BESYLATE 10 MG TABLET (FP) PO SCH (10:34)
[2022-02-05] MEDS: CARVEDILOL 25 MG TABLET (FP) PO SCH ×2 (10:34→21:17)
[2022-02-05] MEDS: SPIRONOLACTONE 25 MG TABLET PO SCH (10:34)
[2022-02-05] MEDS: INSULIN (NOVOLOG) ASPART 100 UNITS/ML 10ML VIAL SQ SCH ×3 (11:47→21:17)
[2022-02-05] MEDS ORDERED: FUROSEMIDE 40 MG/4 ML INJECTABLE VIAL ONE (12:58)
[2022-02-05] MEDS: FUROSEMIDE 40 MG/4 ML INJECTABLE VIAL IVPUSH SCH (13:12)
[2022-02-05] MEDS ORDERED: guaiFENesin/D-M SUGAR-FREE/ACLHOL-FREE 118 ML BOTTLE PO PRN (20:51)
[2022-02-05] MEDS ORDERED: guaiFENesin/D-METHORPHAN HB 10 ML UNIT-DOSE CUPS ONE (21:14)
[2022-02-05] MEDS ORDERED: HEPARIN NA (PORCINE) 5,000 UNITS/ML 1ML VIAL ONE (21:15)
[2022-02-05] MEDS: HEPARIN NA (PORCINE) 5,000 UNITS/ML 1ML VIAL SQ SCH (21:17)
[2022-02-05] MEDS ORDERED: ZOLPIDEM TARTRATE 5 MG TABLET PO PRN (22:00)
[2022-02-06] MEDS ORDERED: guaiFENesin/D-METHORPHAN HB 10 ML UNIT-DOSE CUPS ONE (02:20)
[2022-02-06] MEDS: INSULIN (LEVEMIR) 100 UNITS/ML UNITS SQ SCH ×2 (06:02→22:06)
[2022-02-06] MEDS: INSULIN (NOVOLOG) ASPART 100 UNITS/ML 10ML VIAL SQ SCH ×4 (06:02→22:06)
[2022-02-06] MEDS ORDERED: DEXTROAMPHETAMINE SULFATE 20 MG PO SCH (07:00)
[2022-02-06 07:35] LABS: BASO % 0.6 % (0-2.0); EOS % 4.4 % (0-4.5); HEMATOCRIT 35.5 % (35.4-49); HEMOGLOBIN 11.6 GM/dL (11.7-16.9); LYMPH % 29.1 % (8-40); MCH 28.7 pg (25.7-33.7); MCHC 32.7 g/dl (32.0-35.9); MEAN CELL VOLUME 87.7 fl (80-96); MEAN PLT VOLUME 9.7 fl (7.5-11.1); NEUT % 53.9 % (42.8-82.8); PLATELET COUNT 162 10^3/uL (134-434); RBC 4.05 M/mm3 (4.00-5.60); RDW 13.7 % (11.9-15.9); WHITE BLOOD COUNT 6.8 K/mm3 (4.0-10.0)
[2022-02-06 07:47] LABS: CALCIUM 8.2 mg/dL (8.5-10.1)
[2022-02-06 07:48] LABS: ALBUMIN 2.3 g/dl (3.4-5.0); BLOOD UREA NITROGEN 27.8 mg/dL (7-18)
[2022-02-06 07:51] LABS: BILIRUBIN,TOTAL 0.3 mg/dL (0.2-1); TOT PROT 6.2 g/dl (6.4-8.2)
[2022-02-06] MEDS ORDERED: buPROPion HCL 100 MG TABLET ONE (09:44)
[2022-02-06] MEDS ORDERED: POTASSIUM CHLORIDE TABS 20 MEQ TABLET.ER (FP) PO ONE ×2 (09:45)
[2022-02-06] MEDS ORDERED: amLODIPine BESYLATE 10 MG TABLET (FP) ONE (10:27)
[2022-02-06] MEDS ORDERED: HEPARIN NA (PORCINE) 5,000 UNITS/ML 1ML VIAL ONE (10:28)
[2022-02-06] MEDS ORDERED: CARVEDILOL 25 MG TABLET (FP) ONE ×2 (10:28→10:29)
[2022-02-06] MEDS ORDERED: SPIRONOLACTONE 25 MG TABLET ONE (10:28)
[2022-02-06] MEDS ORDERED: FUROSEMIDE 40 MG/4 ML INJECTABLE VIAL ONE (10:28)
[2022-02-06] MEDS: FUROSEMIDE 40 MG/4 ML INJECTABLE VIAL IVPUSH SCH (10:53)
[2022-02-06] MEDS: SPIRONOLACTONE 25 MG TABLET PO SCH (10:53)
[2022-02-06] MEDS: HEPARIN NA (PORCINE) 5,000 UNITS/ML 1ML VIAL SQ SCH ×2 (10:53→22:04)
[2022-02-06] MEDS: amLODIPine BESYLATE 10 MG TABLET (FP) PO SCH (10:53)
[2022-02-06] MEDS: CARVEDILOL 25 MG TABLET (FP) PO SCH ×2 (10:53→22:04)
[2022-02-07] MEDS: INSULIN SLIDING SCALE (NOVOLOG) 1 VIAL SQ SCH ×4 (06:05→21:36)
[2022-02-07] MEDS: INSULIN (LEVEMIR) 100 UNITS/ML UNITS SQ SCH ×2 (06:05→21:36)
[2022-02-07] MEDS: guaiFENesin/D-M SUGAR-FREE/ACLHOL-FREE 118 ML BOTTLE PO PRN ×3 (06:07→21:38)
[2022-02-07] MEDS: HEPARIN NA (PORCINE) 5,000 UNITS/ML 1ML VIAL SQ SCH ×2 (09:22→21:34)
[2022-02-07] MEDS: FUROSEMIDE 40 MG/4 ML INJECTABLE VIAL IVPUSH SCH (09:22)
[2022-02-07] MEDS: CARVEDILOL 25 MG TABLET (FP) PO SCH ×2 (09:23→21:34)
[2022-02-07] MEDS: SPIRONOLACTONE 25 MG TABLET PO SCH (09:23)
[2022-02-07] MEDS: amLODIPine BESYLATE 10 MG TABLET (FP) PO SCH (09:23)
[2022-02-07 11:30] LABS: CALCIUM 8.3 mg/dL (8.5-10.1)
[2022-02-07 11:31] LABS: BLOOD UREA NITROGEN 29.8 mg/dL (7-18)
[2022-02-07 11:34] LABS: CREATININE 2.1 mg/dL (0.55-1.3)
[2022-02-07] MEDS ORDERED: POTASSIUM CHLORIDE ORAL LIQUID 20 MEQ/15 ML PO ONE (11:48)
[2022-02-07] MEDS: ZOLPIDEM TARTRATE 5 MG TABLET PO PRN (21:34)
[2022-02-08] MEDS: INSULIN SLIDING SCALE (NOVOLOG) 1 VIAL SQ SCH ×4 (06:10→22:23)
[2022-02-08] MEDS: INSULIN (LEVEMIR) 100 UNITS/ML UNITS SQ SCH ×2 (06:50→22:24)
[2022-02-08] MEDS: guaiFENesin/D-M SUGAR-FREE/ACLHOL-FREE 118 ML BOTTLE PO PRN ×2 (06:51→22:57)
[2022-02-08] MEDS: amLODIPine BESYLATE 10 MG TABLET (FP) PO SCH (10:25)
[2022-02-08] MEDS: CARVEDILOL 25 MG TABLET (FP) PO SCH ×2 (10:25→22:21)
[2022-02-08] MEDS: SPIRONOLACTONE 25 MG TABLET PO SCH (10:25)
[2022-02-08] MEDS: FUROSEMIDE 40 MG/4 ML INJECTABLE VIAL IVPUSH SCH (10:25)
[2022-02-08] MEDS: HEPARIN NA (PORCINE) 5,000 UNITS/ML 1ML VIAL SQ SCH ×2 (10:26→22:21)
[2022-02-08 11:25] LABS: BLOOD UREA NITROGEN 32.3 mg/dL (7-18); CALCIUM 8.1 mg/dL (8.5-10.1)
[2022-02-08 11:28] LABS: CREATININE 2.2 mg/dL (0.55-1.3)
[2022-02-08] MEDS: ZOLPIDEM TARTRATE 5 MG TABLET PO PRN (22:21)
[2022-02-09] MEDS ORDERED: ALBUTEROL SO4 HFA INHALER IH PRN ×2 (05:35→06:52)
[2022-02-09] MEDS: INSULIN (LEVEMIR) 100 UNITS/ML UNITS SQ SCH ×2 (06:55→22:03)
[2022-02-09] MEDS: INSULIN SLIDING SCALE (NOVOLOG) 1 VIAL SQ SCH ×4 (06:55→22:06)
[2022-02-09] MEDS: amLODIPine BESYLATE 10 MG TABLET (FP) PO SCH (09:42)
[2022-02-09] MEDS: FUROSEMIDE 40 MG/4 ML INJECTABLE VIAL IVPUSH SCH (09:42)
[2022-02-09] MEDS: SPIRONOLACTONE 25 MG TABLET PO SCH (09:42)
[2022-02-09] MEDS: HEPARIN NA (PORCINE) 5,000 UNITS/ML 1ML VIAL SQ SCH ×2 (09:42→22:06)
[2022-02-09] MEDS: CARVEDILOL 25 MG TABLET (FP) PO SCH ×2 (09:42→22:18)
[2022-02-09] MEDS: guaiFENesin/D-M SUGAR-FREE/ACLHOL-FREE 118 ML BOTTLE PO PRN ×2 (09:43→20:39)
[2022-02-09 10:47] LABS: CALCIUM 8.1 mg/dL (8.5-10.1)
[2022-02-09 10:51] LABS: CREATININE 2.1 mg/dL (0.55-1.3)
[2022-02-09] MEDS: BUDESONIDE/FORMETEROL FUMARATE 160/4.5 mcg INHALER IH SCH ×2 (13:38→22:19)
[2022-02-09] MEDS: TIOTROPIUM BROMIDE 2.5 MCG (SPIRIVA) RESPIMAT INHALER IH SCH (13:39)
[2022-02-09 18:43] VITALS: RESP 18
[2022-02-09] MEDS: ZOLPIDEM TARTRATE 5 MG TABLET PO PRN (22:18)
[2022-02-10] MEDS: INSULIN (LEVEMIR) 100 UNITS/ML UNITS SQ SCH (06:25)
[2022-02-10] MEDS: guaiFENesin/D-M SUGAR-FREE/ACLHOL-FREE 118 ML BOTTLE PO PRN ×2 (06:26→13:35)
[2022-02-10] MEDS: INSULIN SLIDING SCALE (NOVOLOG) 1 VIAL SQ SCH ×3 (06:27→17:35)
[2022-02-10] MEDS: amLODIPine BESYLATE 10 MG TABLET (FP) PO SCH (09:58)
[2022-02-10] MEDS: CARVEDILOL 25 MG TABLET (FP) PO SCH (09:58)
[2022-02-10] MEDS: SPIRONOLACTONE 25 MG TABLET PO SCH (09:58)
[2022-02-10] MEDS: HEPARIN NA (PORCINE) 5,000 UNITS/ML 1ML VIAL SQ SCH (09:58)
[2022-02-10] MEDS: TIOTROPIUM BROMIDE 2.5 MCG (SPIRIVA) RESPIMAT INHALER IH SCH (09:59)
[2022-02-10] MEDS: BUDESONIDE/FORMETEROL FUMARATE 160/4.5 mcg INHALER IH SCH (09:59)
[2022-02-10] MEDS ORDERED: FUROSEMIDE 40 MG TABLET (FP) PO SCH (10:00)
[2022-02-10 15:38] VITALS: BP 151/72; PULSE 92; TEMP 98.6
== END 2022-02-10 17:34 | disposition home or self-care (01) | DRG 291 ==
LOC: JER 19:37 → JERBED 23:05 → J5S 02-06 21:38
PROVIDERS: ADMIT Internal Medicine; ATTEND Internal Medicine
DX: I13.0 Hypertensive heart and chronic kidney disease with heart failure and stage 1 through stage 4 chronic kidney disease, or unspecified chronic kidney disease (principal); I50.33 Acute on chronic diastolic (congestive) heart failure; J44.9 Chronic obstructive pulmonary disease, unspecified; E11.22 Type 2 diabetes mellitus with diabetic chronic kidney disease; N18.9 Chronic kidney disease, unspecified; I25.10 Atherosclerotic heart disease of native coronary artery without angina pectoris; K76.0 Fatty (change of) liver, not elsewhere classified; K21.9 Gastro-esophageal reflux disease without esophagitis; N40.0 Benign prostatic hyperplasia without lower urinary tract symptoms; E78.00 Pure hypercholesterolemia, unspecified; K74.60 Unspecified cirrhosis of liver; B19.20 Unspecified viral hepatitis C without hepatic coma; R60.9 Edema, unspecified; I71.40 Abdominal aortic aneurysm, without rupture, unspecified
CPT/HCPCS: 0241U-QW; 36415; 71045-TC-FY; 80048; 80053; 82962; 83735; 83880; 84484; 85025; 93005; 93010; 93306-TC; 99285-25; J1644

== ENCOUNTER 2022-08-01 16:58 | Observation (INO) | payer OTHER ==
[2022-08-01] MEDS ORDERED: ACETAMINOPHEN 1000 MG/100 ML BAG IVPB ONE (21:30)
[2022-08-01] MEDS ORDERED: ACETAMINOPHEN INJECTION 100 ML IVPB ONE (21:42)
[2022-08-01 22:18] LABS: BASO % 0.9 % (0-2.0); EOS % 2.5 % (0-4.5); HEMATOCRIT 31.6 % (35.4-49); HEMOGLOBIN 10.6 GM/dL (11.7-16.9); LYMPH % 29.1 % (8-40); MCH 29.9 pg (25.7-33.7); MCHC 33.6 g/dl (32.0-35.9); MEAN CELL VOLUME 88.9 fl (80-96); MEAN PLT VOLUME 8.5 fl (7.5-11.1); MONO % 7.7 % (3.8-10.2); NEUT % 59.8 % (42.8-82.8); PLATELET COUNT 213 10^3/uL (134-434); RBC 3.56 M/mm3 (4.00-5.60); RDW 15.2 % (11.9-15.9)
[2022-08-01 22:28] LABS: INR 1.08 (0.83-1.09); PROTHROMBIN TIME (PATIENT) 12.5 SEC (9.7-13.0)
[2022-08-01 22:31] LABS: ACTIVATED PTT 38.1 SECONDS (25.2-36.5)
[2022-08-01 22:34] LABS: POTASSIUM 3.8 mmol/L (3.5-5.1)
[2022-08-01 22:36] LABS: ALBUMIN 3.6 g/dl (3.4-5.0); CALCIUM 9.6 mg/dL (8.5-10.1)
[2022-08-01 22:37] LABS: MAGNESIUM 2.2 mg/dL (1.8-2.4)
[2022-08-01 22:39] LABS: CREATININE 3.2 mg/dL (0.55-1.3)
[2022-08-01 22:40] LABS: PHOSPHOROUS 3.7 mg/dL (2.5-4.9)
[2022-08-01 22:41] LABS: TOT PROT 8.3 g/dl (6.4-8.2)
[2022-08-01 22:45] LABS: N-TERMINAL BNP 276.9 pg/ml (5-125)
[2022-08-01 22:56] LABS: BILIRUBIN,TOTAL 0.3 mg/dL (0.2-1); BLOOD UREA NITROGEN 54.1 mg/dL (7-18)
[2022-08-02] MEDS ORDERED: ACETAMINOPHEN 325 MG TABLET (FP) PO PRN (00:17)
[2022-08-02] MEDS ORDERED: DOCUSATE SODIUM 100 MG CAPSULE (FP) PO PRN (00:17)
[2022-08-02 02:45] VITALS: RESP 20
[2022-08-02] MEDS ORDERED: ZOLPIDEM TARTRATE 5 MG TABLET PO PRN (06:29)
[2022-08-02] MEDS: INSULIN SLIDING SCALE (NOVOLOG) 1 VIAL SQ SCH ×4 (06:32→23:20)
[2022-08-02] MEDS: PANTOPRAZOLE 40 MG TABLET PO SCH (09:26)
[2022-08-02] MEDS: cloNIDine HCL 0.1 MG TABLET PO SCH ×2 (09:26→21:44)
[2022-08-02] MEDS: amLODIPine BESYLATE 10 MG TABLET (FP) PO SCH (09:27)
[2022-08-02] MEDS: SPIRONOLACTONE 25 MG TABLET PO SCH (09:27)
[2022-08-02] MEDS: DULoxetine HCL 30 MG CAPSULE.DR PO SCH (09:27)
[2022-08-02] MEDS: TORSEMIDE 20 MG TABLET (FP) PO SCH ×2 (09:27→21:45)
[2022-08-02] MEDS: ALLOPURINOL 100 MG TABLET (FP) PO SCH (09:27)
[2022-08-02] MEDS: CARVEDILOL 25 MG TABLET (FP) PO SCH ×2 (09:27→21:45)
[2022-08-02] MEDS: BUDESONIDE/FORMETEROL FUMARATE 160/4.5 mcg INHALER IH SCH ×2 (09:27→22:20)
[2022-08-02] MEDS: FLUTICASONE PROP 0.05% 16 GM NASAL SPRAY NS SCH (09:28)
[2022-08-02] MEDS ORDERED: LOSARTAN POTASSIUM 50 MG TABLET PO SCH (10:00)
[2022-08-02] MEDS ORDERED: HYDROCHLOROTHIAZIDE 25 MG TABLET (FP) PO SCH (10:00)
[2022-08-02] MEDS ORDERED: INSULIN (NOVOLOG) ASPART 100 UNITS/ML 10ML VIAL ONE ×2 (16:19→22:06)
[2022-08-02 16:45] VITALS: BMI 227.3
[2022-08-02] MEDS: ATORVASTATIN CA 10 MG TABLET (FP) PO SCH (21:47)
[2022-08-02] MEDS ORDERED: PATIENT'S OWN MEDICATION (NON-FORMULARY) (Zolpidem Tartrate [Ambien Cr] 12.5 MG Tab.Mphase PO SCH (22:00)
[2022-08-03] MEDS ORDERED: INSULIN (NOVOLOG) ASPART 100 UNITS/ML 10ML VIAL ONE ×5 (06:40→21:55)
[2022-08-03] MEDS: INSULIN SLIDING SCALE (NOVOLOG) 1 VIAL SQ SCH ×4 (06:46→22:02)
[2022-08-03 07:55] LABS: BASO % 0.7 % (0-2.0); EOS % 3.5 % (0-4.5); HEMATOCRIT 29.9 % (35.4-49); HEMOGLOBIN 10.3 GM/dL (11.7-16.9); LYMPH % 27.8 % (8-40); MCH 30.5 pg (25.7-33.7); MCHC 34.4 g/dl (32.0-35.9); MEAN CELL VOLUME 88.8 fl (80-96); MEAN PLT VOLUME 8.9 fl (7.5-11.1); MONO % 9.5 % (3.8-10.2); NEUT % 58.5 % (42.8-82.8); PLATELET COUNT 200 10^3/uL (134-434); RBC 3.37 M/mm3 (4.00-5.60); RDW 14.9 % (11.9-15.9)
[2022-08-03 08:16] LABS: BLOOD UREA NITROGEN 47.7 mg/dL (7-18)
[2022-08-03 08:18] LABS: CREATININE 2.7 mg/dL (0.55-1.3)
[2022-08-03] MEDS: PANTOPRAZOLE 40 MG TABLET PO SCH (09:02)
[2022-08-03] MEDS: cloNIDine HCL 0.1 MG TABLET PO SCH ×2 (09:02→21:51)
[2022-08-03] MEDS: CARVEDILOL 25 MG TABLET (FP) PO SCH ×2 (09:02→21:51)
[2022-08-03] MEDS: DULoxetine HCL 30 MG CAPSULE.DR PO SCH (09:02)
[2022-08-03] MEDS: ALLOPURINOL 100 MG TABLET (FP) PO SCH (09:02)
[2022-08-03] MEDS: FLUTICASONE PROP 0.05% 16 GM NASAL SPRAY NS SCH (09:02)
[2022-08-03] MEDS: amLODIPine BESYLATE 10 MG TABLET (FP) PO SCH (09:02)
[2022-08-03] MEDS: SPIRONOLACTONE 25 MG TABLET PO SCH (09:02)
[2022-08-03] MEDS: TORSEMIDE 20 MG TABLET (FP) PO SCH ×2 (09:02→21:51)
[2022-08-03] MEDS: BUDESONIDE/FORMETEROL FUMARATE 160/4.5 mcg INHALER IH SCH ×2 (09:03→22:10)
[2022-08-03] MEDS: ATORVASTATIN CA 10 MG TABLET (FP) PO SCH (21:51)
[2022-08-04] MEDS: INSULIN SLIDING SCALE (NOVOLOG) 1 VIAL SQ SCH ×2 (06:34→10:54)
[2022-08-04 08:08] LABS: POTASSIUM 4.4 mmol/L (3.5-5.1)
[2022-08-04 08:11] LABS: BLOOD UREA NITROGEN 47.9 mg/dL (7-18)
[2022-08-04 08:14] LABS: CREATININE 2.7 mg/dL (0.55-1.3)
[2022-08-04] MEDS: CARVEDILOL 25 MG TABLET (FP) PO SCH (09:02)
[2022-08-04] MEDS: PANTOPRAZOLE 40 MG TABLET PO SCH (09:02)
[2022-08-04] MEDS: DULoxetine HCL 30 MG CAPSULE.DR PO SCH (09:02)
[2022-08-04] MEDS: BUDESONIDE/FORMETEROL FUMARATE 160/4.5 mcg INHALER IH SCH (09:02)
[2022-08-04] MEDS: amLODIPine BESYLATE 10 MG TABLET (FP) PO SCH (09:02)
[2022-08-04] MEDS: TORSEMIDE 20 MG TABLET (FP) PO SCH (09:02)
[2022-08-04] MEDS: cloNIDine HCL 0.1 MG TABLET PO SCH (09:02)
[2022-08-04] MEDS: SPIRONOLACTONE 25 MG TABLET PO SCH (09:02)
[2022-08-04] MEDS: FLUTICASONE PROP 0.05% 16 GM NASAL SPRAY NS SCH (09:02)
[2022-08-04] MEDS: ALLOPURINOL 100 MG TABLET (FP) PO SCH (09:02)
[2022-08-04] MEDS ORDERED: INSULIN (NOVOLOG) ASPART 100 UNITS/ML 10ML VIAL ONE ×2 (10:54→10:57)
[2022-08-04 15:50] VITALS: BP 131/63; PULSE 66; TEMP 98.1
[2022-08-05] MEDS ORDERED: LOSARTAN POTASSIUM 50 MG TABLET PO SCH (10:00)
== END 2022-08-04 16:11 | disposition home or self-care (01) ==
LOC: JER 16:58 → JERBED 19:14 → J4W 08-02 01:58
PROVIDERS: ADMIT Internal Medicine; ATTEND Internal Medicine
PROC: 3E033NZ Introduction of Analgesics, Hypnotics, Sedatives into Peripheral Vein, Percutaneous Approach (ICD-10-PCS; principal; 2022-08-01)
PROC: 3E013VG Introduction of Insulin into Subcutaneous Tissue, Percutaneous Approach (ICD-10-PCS; 2022-08-01)
PROC: 3E0F7SF Introduction of Other Gas into Respiratory Tract, Via Natural or Artificial Opening (ICD-10-PCS; 2022-08-01)
DX: N17.9 Acute kidney failure, unspecified (principal); E11.22 Type 2 diabetes mellitus with diabetic chronic kidney disease; I13.0 Hypertensive heart and chronic kidney disease with heart failure and stage 1 through stage 4 chronic kidney disease, or unspecified chronic kidney disease; N18.9 Chronic kidney disease, unspecified; I50.31 Acute diastolic (congestive) heart failure; Z79.4 Long term (current) use of insulin; R06.02 Shortness of breath; E78.5 Hyperlipidemia, unspecified; K21.9 Gastro-esophageal reflux disease without esophagitis; J44.9 Chronic obstructive pulmonary disease, unspecified; K76.0 Fatty (change of) liver, not elsewhere classified; K74.60 Unspecified cirrhosis of liver; R06.01 Orthopnea; R60.0 Localized edema; I43 Cardiomyopathy in diseases classified elsewhere; I71.40 Abdominal aortic aneurysm, without rupture, unspecified; E87.70 Fluid overload, unspecified; Z86.73 Personal history of transient ischemic attack (TIA), and cerebral infarction without residual deficits; Z86.19 Personal history of other infectious and parasitic diseases
CPT/HCPCS: 0241U-QW; 36415; 71046-TC-FY; 74230-TC-FY; 76775-TC; 76856-TC; 80048; 80053; 82550; 82553; 82962; 83735; 83880; 84100; 84443; 84484; 85025; 85610; 85730; 92611-GN; 93005; 93010; 93970-TC; 94644; 96365; 96372; 99285-25; G0378

== ENCOUNTER 2023-06-07 13:44 | Inpatient (IN) | payer OTHER ==
[2023-06-07] MEDS: methylPREDNISolone NA SUCC 125 MG/2 ML VIAL IVPB ONE (15:15)
[2023-06-07] MEDS: ALBUTEROL SO4 2.5/IPRATROPIUM 0.5 INH SOL 3 ML VIAL.NEB. NEB SCH (15:15)
[2023-06-07 15:22] LABS: VENOUS BASE EXCESS 2.1 mmol/L (-2-2); VENOUS O2 SATURATION 53.3 % (70-80); VENOUS PCO2 47.4 mmHg (38-52); VENOUS PH 7.386 (7.310-7.410)
[2023-06-07 15:27] LABS: BASO % 0.8 % (0-2.0); HEMATOCRIT 35.3 % (35.4-49); HEMOGLOBIN 12.1 GM/dL (11.7-16.9); LYMPH % 13.5 % (8-40); MCH 30.4 pg (25.7-33.7); MCHC 34.4 g/dl (32.0-35.9); MEAN CELL VOLUME 88.4 fl (80-96); MEAN PLT VOLUME 8.3 fl (7.5-11.1); MONO % 7.6 % (3.8-10.2); NEUT % 76.1 % (42.8-82.8); PLATELET COUNT 176 10^3/uL (134-434); RBC 3.99 M/mm3 (4.00-5.60); RDW 13.9 % (11.9-15.9); WHITE BLOOD COUNT 10.1 K/mm3 (4.0-10.0)
[2023-06-07] MEDS ORDERED: methylPREDNISolone NA SUCC 125 MG/2 ML VIAL ONE (15:44)
[2023-06-07] MEDS ORDERED: ALBUTEROL SO4 2.5/IPRATROPIUM 0.5 INH SOL 3 ML VIAL.NEB. NEB ONE (15:44)
[2023-06-07 15:48] LABS: INR 1.1 (0.83-1.09); PROTHROMBIN TIME (PATIENT) 12.8 SEC (9.7-13.0)
[2023-06-07 15:49] LABS: POTASSIUM 4.7 mmol/L (3.5-5.1)
[2023-06-07 15:51] LABS: ACTIVATED PTT 36.6 SECONDS (25.2-36.5)
[2023-06-07 15:54] LABS: ALBUMIN 3.6 g/dl (3.4-5.0); BLOOD UREA NITROGEN 56.2 mg/dL (7-18); CALCIUM 9.1 mg/dL (8.5-10.1); MAGNESIUM 2.3 mg/dL (1.8-2.4)
[2023-06-07 15:57] LABS: CREATININE 3.8 mg/dL (0.55-1.3)
[2023-06-07] MEDS: FUROSEMIDE 40 MG/4 ML INJECTABLE VIAL IVPUSH ONE (15:57)
[2023-06-07 15:58] LABS: BILIRUBIN,TOTAL 0.5 mg/dL (0.2-1); TOT PROT 8.6 g/dl (6.4-8.2)
[2023-06-07 16:02] LABS: N-TERMINAL BNP 781.2 pg/ml (5-125)
[2023-06-07] MEDS ORDERED: HEPARIN - 25,000 UNIT in SODIUM CHLORIDE 495 ML IV SCH (19:00)
[2023-06-07] MEDS ORDERED: HEPARIN NA (PORCINE) 5,000 UNITS/ML 1ML VIAL ONE (19:16)
[2023-06-07] MEDS ORDERED: HEPARIN INFUSION - 25,000 UNITS/500 ML INFUS.BAG IVPB ONE (19:16)
[2023-06-07] MEDS ORDERED: HEPARIN NA (PORCINE) 5,000 UNITS/ML 1ML VIAL IVPUSH PRN (19:18)
[2023-06-07] MEDS: HEPARIN NA (PORCINE) 5,000 UNITS/ML 1ML VIAL IVPUSH ONE ×3 (19:29→22:02)
[2023-06-07] MEDS: HEPARIN INFUSION - 25,000 UNITS/500 ML INFUS.BAG IVPB SCH (19:30)
[2023-06-08] MEDS ORDERED: DOCUSATE SODIUM 100 MG CAPSULE (FP) PO PRN
[2023-06-08 01:15] VITALS: BMI 25.7
[2023-06-08] MEDS: SODIUM CHLORIDE 1,000 ML IV SCH (02:12)
[2023-06-08 07:58] LABS: BASO % 0.5 % (0-2.0); EOS % 0.1 % (0-4.5); HEMATOCRIT 36.1 % (35.4-49); HEMOGLOBIN 12.6 GM/dL (11.7-16.9); LYMPH % 9.4 % (8-40); MCH 30.8 pg (25.7-33.7); MEAN PLT VOLUME 8.6 fl (7.5-11.1); MONO % 2.9 % (3.8-10.2); NEUT % 87.1 % (42.8-82.8); PLATELET COUNT 204 10^3/uL (134-434); RDW 13.9 % (11.9-15.9); WHITE BLOOD COUNT 8.2 K/mm3 (4.0-10.0)
[2023-06-08 08:11] LABS: POTASSIUM 4.2 mmol/L (3.5-5.1)
[2023-06-08 08:15] LABS: CALCIUM 9.2 mg/dL (8.5-10.1)
[2023-06-08 08:16] LABS: BLOOD UREA NITROGEN 50.9 mg/dL (7-18)
[2023-06-08 08:19] LABS: CREATININE 3.4 mg/dL (0.55-1.3)
[2023-06-08] MEDS: ACETAMINOPHEN 325 MG TABLET (FP) PO PRN (10:44)
[2023-06-08] MEDS: amLODIPine BESYLATE 10 MG TABLET (FP) PO SCH (10:44)
[2023-06-08] MEDS: CARVEDILOL 25 MG TABLET (FP) PO SCH (10:44)
[2023-06-08] MEDS ORDERED: SPIRONOLACTONE 25 MG TABLET PO SCH (10:45)
[2023-06-08] MEDS ORDERED: PATIENT'S OWN MEDICATION (NON-FORMULARY) (Dapagliflozin Propanediol 10 MG Tablet) PO SCH (10:45)
[2023-06-08] MEDS ORDERED: LOSARTAN POTASSIUM 50 MG TABLET PO SCH (10:45)
[2023-06-08] MEDS: INSULIN ASPART SLIDING SCALE (NOVOLOG) 1 VIAL SQ SCH (11:25)
[2023-06-08] MEDS: TORSEMIDE 20 MG TABLET (FP) PO SCH (13:49)
[2023-06-08] MEDS ORDERED: INSULIN (NOVOLOG) ASPART 100 UNITS/ML 10ML VIAL ONE (16:40)
[2023-06-08] MEDS: INSULIN (NOVOLOG) ASPART 100 UNITS/ML 10ML VIAL SQ SCH (16:50)
[2023-06-08] MEDS: BUDESONIDE/FORMETEROL FUMARATE 160/4.5 mcg INHALER IH SCH (22:04)
[2023-06-08] MEDS: ZOLPIDEM TARTRATE 5 MG TABLET PO PRN (22:43)
[2023-06-09] MEDS: ZOLPIDEM TARTRATE 5 MG TABLET PO ONE (01:09)
[2023-06-09] MEDS ORDERED: DEXTROAMPHETAMINE SULFATE 20 MG PO SCH (07:00)
[2023-06-09 08:25] LABS: BASO % 0.3 % (0-2.0); EOS % 0.1 % (0-4.5); HEMATOCRIT 34.2 % (35.4-49); HEMOGLOBIN 11.8 GM/dL (11.7-16.9); LYMPH % 14.5 % (8-40); MCH 30.5 pg (25.7-33.7); MCHC 34.5 g/dl (32.0-35.9); MEAN CELL VOLUME 88.4 fl (80-96); MEAN PLT VOLUME 9.3 fl (7.5-11.1); MONO % 7.5 % (3.8-10.2); NEUT % 77.6 % (42.8-82.8); PLATELET COUNT 198 10^3/uL (134-434); RBC 3.87 M/mm3 (4.00-5.60); RDW 13.7 % (11.9-15.9); WHITE BLOOD COUNT 12.4 K/mm3 (4.0-10.0)
[2023-06-09 08:51] LABS: POTASSIUM 4.4 mmol/L (3.5-5.1)
[2023-06-09 08:54] LABS: ALBUMIN 3.3 g/dl (3.4-5.0); BLOOD UREA NITROGEN 59.9 mg/dL (7-18)
[2023-06-09 08:57] LABS: CREATININE 2.8 mg/dL (0.55-1.3)
[2023-06-09 08:59] LABS: BILIRUBIN,TOTAL 0.3 mg/dL (0.2-1); TOT PROT 7.8 g/dl (6.4-8.2)
[2023-06-09] MEDS: PANTOPRAZOLE 40 MG TABLET PO SCH (09:05)
[2023-06-09] MEDS: HEPARIN NA (PORCINE) 5,000 UNITS/ML 1ML VIAL IVPUSH PRN (16:28)
[2023-06-09] MEDS: INSULIN (LEVEMIR) 100 UNITS/ML UNITS SQ SCH (22:45)
[2023-06-10] MEDS: hydrALAZINE HCL 10 MG TABLET PO SCH (12:35)
[2023-06-10] MEDS ORDERED: HEPARIN NA (PORCINE) 5,000 UNITS/ML 1ML VIAL IVPUSH PRN ×2 (19:50)
[2023-06-10] MEDS ORDERED: ACETAMINOPHEN 325 MG TABLET (FP) PO PRN (19:50)
[2023-06-10] MEDS ORDERED: DOCUSATE SODIUM 100 MG CAPSULE (FP) PO PRN (19:50)
[2023-06-10] MEDS ORDERED: APIXABAN 2.5 MG TABLET PO SCH (22:00)
[2023-06-10] MEDS ORDERED: INSULIN (LEVEMIR) 100 UNITS/ML UNITS SQ SCH (22:00)
[2023-06-10] MEDS: HEPARIN INFUSION - 25,000 UNITS/500 ML INFUS.BAG IVPB SCH (22:05)
[2023-06-10] MEDS: APIXABAN 2.5 MG TABLET PO SCH (22:06)
[2023-06-10] MEDS: CARVEDILOL 25 MG TABLET (FP) PO SCH (22:06)
[2023-06-10] MEDS: INSULIN (LEVEMIR) 100 UNITS/ML UNITS SQ SCH (22:06)
[2023-06-10] MEDS: BUDESONIDE/FORMETEROL FUMARATE 160/4.5 mcg INHALER IH SCH (22:18)
[2023-06-10] MEDS: INSULIN ASPART SLIDING SCALE (NOVOLOG) 1 VIAL SQ SCH (22:22)
[2023-06-11] MEDS: ZOLPIDEM TARTRATE 5 MG TABLET PO PRN (01:09)
[2023-06-11] MEDS: TORSEMIDE 20 MG TABLET (FP) PO SCH (06:18)
[2023-06-11] MEDS ORDERED: DEXTROAMPHETAMINE SULFATE 20 MG PO SCH (07:00)
[2023-06-11 09:00] LABS: BASO % 1.1 % (0-2.0); EOS % 3.5 % (0-4.5); HEMATOCRIT 35.9 % (35.4-49); HEMOGLOBIN 11.9 GM/dL (11.7-16.9); LYMPH % 28.9 % (8-40); MCH 29.9 pg (25.7-33.7); MCHC 33.2 g/dl (32.0-35.9); MEAN CELL VOLUME 90.1 fl (80-96); MEAN PLT VOLUME 8.7 fl (7.5-11.1); MONO % 10.4 % (3.8-10.2); NEUT % 56.1 % (42.8-82.8); PLATELET COUNT 183 10^3/uL (134-434); RBC 3.99 M/mm3 (4.00-5.60); RDW 13.7 % (11.9-15.9); WHITE BLOOD COUNT 9.3 K/mm3 (4.0-10.0)
[2023-06-11 09:21] LABS: POTASSIUM 4.4 mmol/L (3.5-5.1)
[2023-06-11 09:23] LABS: CALCIUM 9.1 mg/dL (8.5-10.1)
[2023-06-11 09:24] LABS: BLOOD UREA NITROGEN 43.2 mg/dL (7-18)
[2023-06-11] MEDS: PANTOPRAZOLE 40 MG TABLET PO SCH (09:24)
[2023-06-11] MEDS: amLODIPine BESYLATE 10 MG TABLET (FP) PO SCH (09:24)
[2023-06-11 09:27] LABS: CREATININE 2.4 mg/dL (0.55-1.3)
[2023-06-11 09:29] LABS: BILIRUBIN,TOTAL 0.3 mg/dL (0.2-1); TOT PROT 7.3 g/dl (6.4-8.2)
[2023-06-11] MEDS ORDERED: PATIENT'S OWN MEDICATION (NON-FORMULARY) (Dapagliflozin Propanediol 10 MG) PO SCH (10:00)
[2023-06-13 13:06] VITALS: RESP 18
[2023-06-13] MEDS: APIXABAN 5 MG TABLET PO SCH (21:45)
[2023-06-13] MEDS: ZOLPIDEM TARTRATE 5 MG TABLET PO ONE (22:38)
[2023-06-14 09:41] VITALS: BP 147/86; PULSE 84; TEMP 98
[2023-06-14 10:58] LABS: POTASSIUM 4.1 mmol/L (3.5-5.1)
[2023-06-14 11:05] LABS: BLOOD UREA NITROGEN 54.6 mg/dL (7-18); CALCIUM 8.7 mg/dL (8.5-10.1)
[2023-06-14 11:06] LABS: CREATININE 2.6 mg/dL (0.55-1.3)
[2023-06-14 11:08] LABS: BILIRUBIN,TOTAL 0.3 mg/dL (0.2-1); TOT PROT 7.2 g/dl (6.4-8.2)
== END 2023-06-14 11:44 | disposition home or self-care (01) | DRG 299 ==
LOC: JER 13:44 → JERBED 18:53 → J4W 06-08 00:18 → J5S 06-10 19:26
PROVIDERS: ADMIT Internal Medicine; ATTEND Internal Medicine
DX: I82.411 Acute embolism and thrombosis of right femoral vein (principal); I26.99 Other pulmonary embolism without acute cor pulmonale; I13.0 Hypertensive heart and chronic kidney disease with heart failure and stage 1 through stage 4 chronic kidney disease, or unspecified chronic kidney disease; I50.32 Chronic diastolic (congestive) heart failure; I42.2 Other hypertrophic cardiomyopathy; I25.10 Atherosclerotic heart disease of native coronary artery without angina pectoris; E78.5 Hyperlipidemia, unspecified; J44.9 Chronic obstructive pulmonary disease, unspecified; N18.9 Chronic kidney disease, unspecified; E11.22 Type 2 diabetes mellitus with diabetic chronic kidney disease; I25.2 Old myocardial infarction; K76.0 Fatty (change of) liver, not elsewhere classified; I27.20 Pulmonary hypertension, unspecified; N40.0 Benign prostatic hyperplasia without lower urinary tract symptoms; R09.02 Hypoxemia; R91.1 Solitary pulmonary nodule; N28.1 Cyst of kidney, acquired; I71.40 Abdominal aortic aneurysm, without rupture, unspecified; R60.0 Localized edema
CPT/HCPCS: 0241U-QW; 36415; 71045-TC-FY; 76775-TC; 78582-TC; 80048; 80053; 82803; 82962; 83735; 83880; 84484; 85025; 85379; 85610; 85730; 93005; 93010; 93306-TC; 93970-TC; 99285-25; A9539; A9540; J1644

== ENCOUNTER 2024-03-22 13:15 | Inpatient (IN) | payer OTHER ==
[2024-03-22 15:27] LABS: VENOUS BASE EXCESS -2.1 mmol/L (-2-2); VENOUS O2 SATURATION 51.9 % (70-80); VENOUS PCO2 39.6 mmHg (38-52); VENOUS PH 7.378 (7.310-7.410)
[2024-03-22 15:31] LABS: BASO % 0.4 % (0-2.0); EOS % 0.6 % (0-4.5); HEMATOCRIT 32.6 % (35.4-49); HEMOGLOBIN 11.1 GM/dL (11.7-16.9); MCH 30.2 pg (25.7-33.7); MCHC 34.2 g/dl (32.0-35.9); MEAN CELL VOLUME 88.4 fl (80-96); MEAN PLT VOLUME 8.4 fl (7.5-11.1); MONO % 12.9 % (3.8-10.2); NEUT % 78.1 % (42.8-82.8); PLATELET COUNT 217 10^3/uL (134-434); RBC 3.69 M/mm3 (4.00-5.60); RDW 13.7 % (11.9-15.9)
[2024-03-22 15:46] LABS: POTASSIUM 3.9 mmol/L (3.5-5.1)
[2024-03-22 15:48] LABS: ALBUMIN 2.7 g/dl (3.4-5.0); BLOOD UREA NITROGEN 103.1 mg/dL (7-18); CALCIUM 9.1 mg/dL (8.5-10.1); MAGNESIUM 2.3 mg/dL (1.8-2.4)
[2024-03-22 15:51] LABS: CREATININE 4.6 mg/dL (0.55-1.3)
[2024-03-22 15:52] LABS: BILIRUBIN,TOTAL 1.2 mg/dL (0.2-1); TOT PROT 7.4 g/dl (6.4-8.2)
[2024-03-22] MEDS ORDERED: ACETAMINOPHEN 325 MG TABLET (FP) ONE (17:09)
[2024-03-22] MEDS ORDERED: ALBUTEROL SO4 2.5/IPRATROPIUM 0.5 INH SOL 3 ML VIAL.NEB. NEB ONE (17:09)
[2024-03-22] MEDS ORDERED: LIDOCAINE 5% TOPICAL PATCH ONE (17:10)
[2024-03-22] MEDS ORDERED: methylPREDNISolone NA SUCC 125 MG/2 ML VIAL ONE ×2 (17:10→17:12)
[2024-03-22] MEDS: ALBUTEROL SO4 2.5/IPRATROPIUM 0.5 INH SOL 3 ML VIAL.NEB. NEB ONE (17:36)
[2024-03-22] MEDS: LIDOCAINE 5% TOPICAL PATCH TP ONE (17:37)
[2024-03-22] MEDS: methylPREDNISolone NA SUCC 125 MG/2 ML VIAL IVPB ONE (17:37)
[2024-03-22] MEDS: ACETAMINOPHEN 500 MG TABLET (FP) PO ONE (17:37)
[2024-03-22] MEDS ORDERED: MORPHINE SULFATE 2 MG/ML SYRINGE IVPUSH PRN (22:02)
[2024-03-22] MEDS: INSULIN ASPART SLIDING SCALE (NOVOLOG) 1 VIAL SQ SCH (23:22)
[2024-03-23 03:56] VITALS: BMI 25.6
[2024-03-23] MEDS: CARVEDILOL 12.5 MG TABLET (FP) PO ONE (03:57)
[2024-03-23] MEDS: LABETALOL HCL 20 MG/4 ML VIAL IVPUSH ONE (05:13)
[2024-03-23] MEDS: LIDOCAINE PATCH REMOVAL MC SCH (05:13)
[2024-03-23 09:30] LABS: URINE APPEARANCE CLOUDY; URINE BILIRUBIN NEGATIVE (NEGATIVE); URINE COLOR YELLOW; URINE GLUCOSE (UA) 1+ (NEGATIVE); URINE KETONE NEGATIVE (NEGATIVE); URINE LEUK ESTERASE NEGATIVE (NEGATIVE); URINE NITRITE NEGATIVE (NEGATIVE); URINE PROTEIN 1+ (NEGATIVE)
[2024-03-23 09:37] LABS: EPI CELLS 5 /uL (0-25.1); HYALINE CASTS 1 /uL (0-3.1); URINE BACTERIA 2 /uL (0-1359); URINE RBC 42 /uL (0-23.9); URINE WBC 7 /uL (0-25.8)
[2024-03-23] MEDS: MINERAL OIL/PET HY-PHL TOPICAL OINTMENT 454 GM JAR TP SCH (10:18)
[2024-03-23] MEDS: amLODIPine BESYLATE 10 MG TABLET (FP) PO SCH (10:19)
[2024-03-23] MEDS: APIXABAN 5 MG TABLET PO SCH (10:20)
[2024-03-23] MEDS: CARVEDILOL 25 MG TABLET (FP) PO SCH (10:20)
[2024-03-23 11:11] LABS: CHLORIDE 97 mmol/L (98-107); HEMOGLOBIN 10.9 GM/dL (11.7-16.9); MCH 30.7 pg (25.7-33.7); MEAN CELL VOLUME 90.2 fl (80-96); MEAN PLT VOLUME 8.7 fl (7.5-11.1); PLATELET COUNT 259 10^3/uL (134-434); POTASSIUM 3.9 mmol/L (3.5-5.1); RBC 3.55 M/mm3 (4.00-5.60); RDW 13.5 % (11.9-15.9); SODIUM 132 mmol/L (136-145); WHITE BLOOD COUNT 9.7 K/mm3 (4.0-10.0)
[2024-03-23 11:35] LABS: ANION GAP 14 mmol/L (4-13); CO2 21 mmol/L (21-32); GLUCOSE,RANDOM 251 mg/dL (74-106); MAGNESIUM 2.3 mg/dL (1.8-2.4)
[2024-03-23 11:39] LABS: CREATININE 4.3 mg/dL (0.55-1.3); PHOSPHOROUS 4.5 mg/dL (2.5-4.9)
[2024-03-23 11:44] LABS: N-TERMINAL BNP 2376.7 pg/ml (5-125)
[2024-03-23 11:46] LABS: BLOOD UREA NITROGEN 111.9 mg/dL (7-18)
[2024-03-23] MEDS ORDERED: ALBUTEROL SO4 HFA INHALER IH PRN (12:35)
[2024-03-23] MEDS: SODIUM CHLORIDE 1,000 ML IV SCH (13:05)
[2024-03-23] MEDS: cloNIDine HCL 0.1 MG TABLET PO SCH (14:44)
[2024-03-23] MEDS: FLUTICASONE/UMECLIDIN/VILANTER(100-62.5-25 TRELEGY ELLIPTA) INAHLER IH SCH (14:44)
[2024-03-23] MEDS: NIFEdipine E.R. 30 MG TABLET PO SCH (22:06)
[2024-03-24] MEDS: LIDOCAINE 5% TOPICAL PATCH TP SCH (12:40)
[2024-03-24 12:42] LABS: BASO % 0.1 % (0-2.0); EOS % 0.9 % (0-4.5); HEMATOCRIT 28.8 % (35.4-49); HEMOGLOBIN 9.6 GM/dL (11.7-16.9); LYMPH % 13.7 % (8-40); MCH 29.8 pg (25.7-33.7); MCHC 33.2 g/dl (32.0-35.9); MEAN CELL VOLUME 89.9 fl (80-96); MEAN PLT VOLUME 8.4 fl (7.5-11.1); MONO % 7.9 % (3.8-10.2); NEUT % 77.4 % (42.8-82.8); PLATELET COUNT 279 10^3/uL (134-434); RDW 13.9 % (11.9-15.9); WHITE BLOOD COUNT 9.6 K/mm3 (4.0-10.0)
[2024-03-24 12:53] LABS: CHLORIDE 99 mmol/L (98-107); POTASSIUM 3.9 mmol/L (3.5-5.1); SODIUM 133 mmol/L (136-145)
[2024-03-24 12:54] LABS: ANION GAP 11 mmol/L (4-13); CALCIUM 8.2 mg/dL (8.5-10.1); CO2 23 mmol/L (21-32); GLUCOSE,RANDOM 231 mg/dL (74-106)
[2024-03-24 12:56] LABS: BLOOD UREA NITROGEN 115.9 mg/dL (7-18)
[2024-03-24 12:57] LABS: CREATININE 3.4 mg/dL (0.55-1.3); SGOT/AST 32 U/L (15-37); SGPT/ALT 33 U/L (13-61)
[2024-03-24 12:59] LABS: BILIRUBIN,TOTAL 0.3 mg/dL (0.2-1); TOT PROT 5.9 g/dl (6.4-8.2)
[2024-03-24 13:05] LABS: ALK PHOS 128 U/L (45-117)
[2024-03-24] MEDS: LIDOCAINE PATCH REMOVAL MC SCH (21:22)
[2024-03-24] MEDS: INSULIN (LEVEMIR) 100 UNITS/ML UNITS SQ SCH (21:22)
[2024-03-24] MEDS: cloNIDine HCL 0.1 MG TABLET PO SCH (21:24)
[2024-03-25 11:04] LABS: BASO % 0.4 % (0-2.0); EOS % 0.7 % (0-4.5); HEMATOCRIT 30.2 % (35.4-49); HEMOGLOBIN 10.5 GM/dL (11.7-16.9); LYMPH % 8.2 % (8-40); MCH 30.6 pg (25.7-33.7); MCHC 34.7 g/dl (32.0-35.9); MEAN CELL VOLUME 88.2 fl (80-96); MEAN PLT VOLUME 7.8 fl (7.5-11.1); MONO % 10.1 % (3.8-10.2); NEUT % 80.6 % (42.8-82.8); PLATELET COUNT 322 10^3/uL (134-434); RBC 3.42 M/mm3 (4.00-5.60); RDW 13.7 % (11.9-15.9); WHITE BLOOD COUNT 9.3 K/mm3 (4.0-10.0)
[2024-03-25] MEDS: NIFEdipine E.R. 30 MG TABLET PO SCH (11:13)
[2024-03-25] MEDS: CEFTRIAXONE 1 G/50 ML PREMIX 50 ML IVPB SCH (11:13)
[2024-03-25 11:54] LABS: POTASSIUM 4.4 mmol/L (3.5-5.1)
[2024-03-25 11:56] LABS: ALBUMIN 2.2 g/dl (3.4-5.0); BLOOD UREA NITROGEN 101.9 mg/dL (7-18); CALCIUM 8.4 mg/dL (8.5-10.1)
[2024-03-25 11:59] LABS: CREATININE 2.8 mg/dL (0.55-1.3)
[2024-03-25 12:01] LABS: BILIRUBIN,TOTAL 0.5 mg/dL (0.2-1); TOT PROT 6.4 g/dl (6.4-8.2)
[2024-03-26 11:29] LABS: POTASSIUM 4.4 mmol/L (3.5-5.1)
[2024-03-26 11:31] LABS: CALCIUM 8.1 mg/dL (8.5-10.1)
[2024-03-26 11:32] LABS: ALBUMIN 1.9 g/dl (3.4-5.0); BLOOD UREA NITROGEN 92.2 mg/dL (7-18)
[2024-03-26 11:35] LABS: CREATININE 2.4 mg/dL (0.55-1.3)
[2024-03-26 11:36] LABS: BILIRUBIN,TOTAL 0.4 mg/dL (0.2-1); TOT PROT 5.7 g/dl (6.4-8.2)
[2024-03-27 09:39] LABS: POTASSIUM 4.3 mmol/L (3.5-5.1)
[2024-03-27 09:46] LABS: HEMATOCRIT 29.3 % (35.4-49); HEMOGLOBIN 9.7 GM/dL (11.7-16.9); MCH 29.9 pg (25.7-33.7); MCHC 33.2 g/dl (32.0-35.9); MEAN CELL VOLUME 90.3 fl (80-96); MEAN PLT VOLUME 7.6 fl (7.5-11.1); PLATELET COUNT 375 10^3/uL (134-434); RBC 3.25 M/mm3 (4.00-5.60); RDW 13.8 % (11.9-15.9); WHITE BLOOD COUNT 9.6 K/mm3 (4.0-10.0)
[2024-03-27 09:52] LABS: CALCIUM 8.6 mg/dL (8.5-10.1)
[2024-03-27 09:55] LABS: BLOOD UREA NITROGEN 73.6 mg/dL (7-18); CREATININE 2.1 mg/dL (0.55-1.3)
[2024-03-27 09:57] LABS: BILIRUBIN,TOTAL 0.4 mg/dL (0.2-1)
[2024-03-27 11:46] LABS: ANISOCYTOSIS 0; MACROCYTOSIS 0; TARGET CELLS 1+
[2024-03-27] MEDS: SODIUM CHLORIDE 1,000 ML IV SCH (16:38)
[2024-03-28] MEDS ORDERED: INSULIN ASPART SLIDING SCALE (NOVOLOG) 1 VIAL SQ ONE (06:57)
[2024-03-28 09:35] LABS: POTASSIUM 4.6 mmol/L (3.5-5.1)
[2024-03-28 09:37] LABS: CALCIUM 8.6 mg/dL (8.5-10.1)
[2024-03-28 09:38] LABS: BLOOD UREA NITROGEN 56.9 mg/dL (7-18)
[2024-03-28 09:41] LABS: CREATININE 1.9 mg/dL (0.55-1.3)
[2024-03-28 09:42] LABS: BILIRUBIN,TOTAL 0.3 mg/dL (0.2-1)
[2024-03-29 09:11] LABS: BASO % 0.6 % (0-2.0); EOS % 2.6 % (0-4.5); HEMATOCRIT 28.6 % (35.4-49); HEMOGLOBIN 9.6 GM/dL (11.7-16.9); LYMPH % 16.3 % (8-40); MCH 30.1 pg (25.7-33.7); MCHC 33.4 g/dl (32.0-35.9); MEAN CELL VOLUME 89.9 fl (80-96); MEAN PLT VOLUME 7.5 fl (7.5-11.1); MONO % 8.7 % (3.8-10.2); NEUT % 71.8 % (42.8-82.8); PLATELET COUNT 394 10^3/uL (134-434); RBC 3.19 M/mm3 (4.00-5.60); RDW 14.2 % (11.9-15.9); WHITE BLOOD COUNT 8.9 K/mm3 (4.0-10.0)
[2024-03-29 09:32] LABS: CALCIUM 8.5 mg/dL (8.5-10.1)
[2024-03-29 09:33] LABS: BLOOD UREA NITROGEN 45.5 mg/dL (7-18)
[2024-03-29 09:36] LABS: CREATININE 1.7 mg/dL (0.55-1.3)
[2024-03-29 09:37] LABS: BILIRUBIN,TOTAL 0.4 mg/dL (0.2-1)
[2024-03-29 09:38] LABS: TOT PROT 6.2 g/dl (6.4-8.2)
[2024-03-31 09:25] LABS: POTASSIUM 4.9 mmol/L (3.5-5.1)
[2024-03-31 09:27] LABS: BASO % 0.6 % (0-2.0); EOS % 1.4 % (0-4.5); HEMATOCRIT 26.7 % (35.4-49); HEMOGLOBIN 9.1 GM/dL (11.7-16.9); LYMPH % 18.2 % (8-40); MCH 30.1 pg (25.7-33.7); MCHC 33.9 g/dl (32.0-35.9); MEAN CELL VOLUME 88.9 fl (80-96); MEAN PLT VOLUME 7.6 fl (7.5-11.1); MONO % 9.8 % (3.8-10.2); PLATELET COUNT 305 10^3/uL (134-434); RDW 13.9 % (11.9-15.9); WHITE BLOOD COUNT 7.3 K/mm3 (4.0-10.0)
[2024-03-31 09:28] LABS: BLOOD UREA NITROGEN 34.7 mg/dL (7-18); CALCIUM 8.4 mg/dL (8.5-10.1)
[2024-03-31 09:31] LABS: CREATININE 1.7 mg/dL (0.55-1.3)
[2024-03-31 09:33] LABS: BILIRUBIN,TOTAL 0.3 mg/dL (0.2-1); TOT PROT 5.8 g/dl (6.4-8.2)
[2024-04-01 13:59] LABS: POTASSIUM 4.9 mmol/L (3.5-5.1)
[2024-04-01 14:12] LABS: ALBUMIN 1.9 g/dl (3.4-5.0); BLOOD UREA NITROGEN 30.8 mg/dL (7-18)
[2024-04-01 14:15] LABS: CREATININE 1.6 mg/dL (0.55-1.3)
[2024-04-01 14:16] LABS: BILIRUBIN,TOTAL 0.2 mg/dL (0.2-1); CALCIUM 8.5 mg/dL (8.5-10.1)
[2024-04-01] MEDS: FUROSEMIDE 40 MG TABLET (FP) PO ONE (15:53)
[2024-04-02] MEDS: FUROSEMIDE 40 MG TABLET (FP) PO ONE (14:44)
[2024-04-03] MEDS: FUROSEMIDE 40 MG TABLET (FP) PO ONE (15:01)
[2024-04-03] MEDS ORDERED: DOCUSATE SODIUM 100 MG CAPSULE (FP) PO PRN (15:19)
[2024-04-03] MEDS: oxyCODONE HCL 5 MG TABLET PO PRN (17:06)
[2024-04-04 09:50] LABS: POTASSIUM 4.5 mmol/L (3.5-5.1)
[2024-04-04 09:52] LABS: CALCIUM 8.4 mg/dL (8.5-10.1)
[2024-04-04 09:53] LABS: ALBUMIN 2.1 g/dl (3.4-5.0); BLOOD UREA NITROGEN 25.2 mg/dL (7-18)
[2024-04-04 09:56] LABS: CREATININE 1.6 mg/dL (0.55-1.3)
[2024-04-04 09:57] LABS: BILIRUBIN,TOTAL 0.3 mg/dL (0.2-1); TOT PROT 6.3 g/dl (6.4-8.2)
[2024-04-04 16:18] VITALS: BP 121/69; PULSE 87; RESP 15; TEMP 99.1
== END 2024-04-04 16:33 | disposition short-term general hospital (02) | DRG 92 ==
LOC: JER 13:15 → JERBED 20:19 → J8W 03-23 01:43
PROVIDERS: ADMIT Internal Medicine; ATTEND Internal Medicine
DX: G95.9 Disease of spinal cord, unspecified (principal); I13.0 Hypertensive heart and chronic kidney disease with heart failure and stage 1 through stage 4 chronic kidney disease, or unspecified chronic kidney disease; I50.32 Chronic diastolic (congestive) heart failure; J44.1 Chronic obstructive pulmonary disease with (acute) exacerbation; N17.9 Acute kidney failure, unspecified; G95.20 Unspecified cord compression; M54.50 Low back pain, unspecified; K74.60 Unspecified cirrhosis of liver; E11.22 Type 2 diabetes mellitus with diabetic chronic kidney disease; I25.10 Atherosclerotic heart disease of native coronary artery without angina pectoris; E78.5 Hyperlipidemia, unspecified; M48.061 Spinal stenosis, lumbar region without neurogenic claudication; R91.1 Solitary pulmonary nodule; N18.9 Chronic kidney disease, unspecified
CPT/HCPCS: 36415; 71046-TC-FY; 71250-TC; 72125-TC; 72128-TC; 72131-TC; 72141-TC; 72148-TC; 74176-TC; 76775-TC; 76882-TC-RT-FY; 80048; 80053; 81003; 82570; 82803; 82962; 83735; 83880; 84100; 84156; 84300; 84484; 85025; 85027; 87040; 87086; 87635; 93005; 93010; 93306-TC; 94010; 97116-GP; 97161-GP; 99285-25